=== PATIENT | male | born 1935 | race Caucasian/White ===

== ENCOUNTER 2017-01-04 09:02 | Emergency (ER) | payer MEDICARE, BC ==
[2017-01-04] MEDS ORDERED: IPRATROPIUM/ALBUTEROL 0.5/3 MG 3 ML AMPUL.NEB INHALATION ONE (09:28)
[2017-01-04 10:06] LABS: ALBUMIN 3.2 g/dL (3.5-5.0); ALKALINE PHOSPHATASE 210 U/L (38-126); ALT 36 U/L (21-72); AST 35 U/L (17-59); BILIRUBIN, DIRECT 0.2 mg/dL (0.0-0.4); BILIRUBIN, TOTAL 0.7 mg/dL (0.2-1.3); BLOOD UREA NITROGEN 22 mg/dL (9-20); CALCIUM 8.6 mg/dL (8.4-10.2); CHLORIDE 107 mmol/L (98-107); GLUCOSE 117 mg/dL (70-100); POTASSIUM 4.5 mmol/L (3.5-5.1); SODIUM 140 mmol/L (137-145); TOTAL PROTEIN 7.4 g/dL (6.3-8.2)
[2017-01-04 10:24] LABS: TROPONIN I 0.121 ng/mL (0.00-0.034)
[2017-01-04 10:43] LABS: HEMATOCRIT 28.4 % (42.0-54.0); HEMOGLOBIN 9.2 g/dL (14.0-18.0); MEAN CELL VOLUME 73.8 fL (80.0-100.0); MEAN CORPUS. HGB CONCENTRATION 32.4 g/dL (32.0-36.0); MEAN CORPUSCULAR HEMOGLOBIN 23.9 pg (29.0-35.0); MEAN PLATELET VOLUME 8.8 fL (7.4-10.4); PLATELET COUNT 154 X 10^3uL (130-440); RED BLOOD COUNT 3.84 X 10^6uL (4.20-6.10); RED CELL DISTRIBUTION WIDTH 18.9 % (11.5-14.5); WHITE BLOOD COUNT 3.4 X 10^3uL (3.9-10.7)
[2017-01-04 10:44] LABS: BAND% (Manual) 4 % (0.0-1.0); BASOPHIL % (Manual) 0 % (0.0-2.0); EOSINOPHIL % (Manual) 0 % (0.0-6.0); LYMPHOCYTE % (Manual) 28 % (20.0-40.0); MONOCYTE % (Manual) 2 % (2.0-10.0); NEUTROPHIL % (Manual) 66 % (54.0-75.0); NUCLEATED RED BLOOD CELL 1 #/100WBC (0-0)
[2017-01-04 10:45] LABS: OVALOCYTES PRESENT; PLATELET ESTIMATE ADEQUATE; SPHEROCYTE PRESENT; TEAR DROP CELLS PRESENT
--- NOTE | 2017-01-04 11:45 | RADIOLOGY REPORT ---
Two views of the chest, without prior films for comparison, demonstrates evidence of prior sternal splitting thoracotomy. The cardiac silhouette is enlarged. The pulmonary vasculature is unremarkable. Blunting of the left costophrenic angle is noted. Scarring versus fluid. There are findings consistent with a 15 cm hiatal hernia. The lung tilley are otherwise clear. No infiltrate or pneumothorax is seen. IMPRESSION: 1. Postoperative changes. 2. Enlargement of the cardiac silhouette. 3. Blunting of the left costophrenic angle. 4. Findings consistent with hiatal hernia. MTDD
--- NOTE | 2017-01-04 12:13 | CT REPORT ---
HISTORY: Chest pain, shortness of breath COMPARISON: None. TECHNIQUE: This examination was performed using automated exposure control, adjustment of mA or kV according to patient size, and/or use of iterative reconstruction technique. Axial CT imaging from the thoracic i nlet through the upper abdomen following administration of IV contrast during peak opacification of t he pulmonary arteries, multiplanar reformatted and 3-D images are evaluated. FINDINGS: The pulmonary arteries are clear with no evidence for pulmonary embolism. The proximal aorta is lyle l in caliber with no evidence for dissection or aneurysm. However, there is marked aneurysmal enlargement of the distal thoracic aorta near the diaphragmatic h iatus. The aorta measures 8.4 cm in AP dimension and 8.5 cm in transverse dimension. The aneurysm ext ends into the abdominal aorta. There is diffuse atherosclerotic disease. There is also cardiomegaly and coronary artery disease. 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 No pericardial effusion. There are small bilateral pleural ef fusions and nonspecific lower lobe predominant groundglass opacities. Mild emphysematous changes are also noted. Basilar compressive atelectasis. Upper abdominal organs are grossly unremarkable where vi sualized. IMPRESSION: 1. Negative for pulmonary embolism. 2. Cardiomegaly with small bilateral effusions and basilar predominant groundglass opacities suggesti ve of CHF. 3. 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 This ca n be further evaluated with CT angiogram of the abdomen and pelvis. Results were communicated to Musa Sheehan at 01/04/2017 12:07 PM. Final Electronic Signature: This report was electronically signed by Saran Soliz MD on 01/04/2017 12 :10 PM. erick /
--- NOTE | 2017-01-04 13:25 | ER NURSING DOCUMENTATION ---
Nurse's Notes [facility] Name:Earnest Velázquez Age:81 yrs Sex:Male :1935 Arrival Date:01/04/2017 Time:09:02 BedTrauma-C Private MD:Mark Joe Diagnosis:CHF (Congestive Heart Failure);Thoracic Aortic Aneurysm Presentation: 01/04 09:02 Presenting complaint: Patient states: pt has had significant troubles breath since st arriving in [place] from [place]. pt is a parts specialist resident here. pt has a lung nodule that they are watching. pt denies any cough or pain with this. Transition of care: Home. 09:02 Method Of Arrival: Private Vehicle st 09:09 Acuity: NIKOLAI 2 st Triage Assessment: 09:02 General: Appears uncomfortable, Behavior is cooperative. Pain: Denies pain. st Cardiovascular: Capillary refill < 3 seconds Pulses are all present. Rhythm is sinus rhythm. Respiratory: Airway is patent Respiratory effort is even, labored, Respiratory pattern is regular, symmetrical, hyperventilation Breath sounds are diminished bilaterally. Reports shortness of breath Onset: The symptoms/episode began/occurred last night while trying to sleep his first night at altitude this time around., the patient has moderate shortness of breath. GI: No deficits noted. Historical: - Allergies: Tetanus Vaccines & Toxoid; - Home Meds: 1. losartan oral 2. Lipitor Oral 3. Amiodarone Oral 4. Prilosec Oral 5. Synthroid Oral 6. doxazosin oral 7. fluticasone inhl 8. Celexa Oral 9. Lopressor Oral 10. Aspirin Oral 11. Spironolactone Oral 12. Norvasc Oral - PMHx: fever of UNK origens; CHF; Hypertension; DEPRESSION; HYPOTHYROIDISM; - Tetanus: > 10 years Other pt is alergic. - Ebola Screening: : Patient denies exposure to infectious person. Patient denies travel to an Ebola-affected area in the 21 days before illness onset. . - Immunization history: Pneumococcal vaccine status is unknown. - Social history: Smoking status: Patient states former smoker of tobacco. Patient uses alcohol but reports only rare drinking. Patient/guardian denies using marijuana. Screenin:03 Infectious Disease Risk None. Abuse screen: Denies threats or abuse. Denies injuries st from another. pt feels safe at home. Nutritional screening: No deficits noted. Assessment: 11:09 General: pt continues to rest quietly. pt only complaint continues to be SOB.. st Vital Signs: 09:02 BP 155 / 91; Pulse 101; Resp 29; Temp 101.5; Pulse Ox 77% on R/A; Pain 0/10; st 09:33 Pulse Ox 90% on 4 lpm NC; st 09:38 BP 124 / 72 (auto/); st 09:41 Pulse 82 MON; Resp 16; Pulse Ox 90% ; st 10:00 BP 121 / 72 (auto/); st 10:01 Pulse 79 MON; Resp 17; Pulse Ox 91% ; st 10:30 BP 111 / 71 (auto/); st 10:31 Pulse 77 MON; Resp 22; Pulse Ox 93% ; st 10:52 Temp 99.3; st 11:00 BP 119 / 68 (auto/); st 11:01 Pulse 77 MON; Resp 25; Pulse Ox 93% ; st 12:03 BP 124 / 74 (auto/); st 12:21 Pulse 74 MON; Resp 17; Pulse Ox 93% ; st 12:30 BP 130 / 73 (auto/); st 12:31 Pulse 74 MON; Resp 26; Pulse Ox 90% ; st 13:00 BP 125 / 73 (auto/); st 13:01 Pulse 76 MON; Resp 13; Pulse Ox 91% ; st 09:02 pt has a hx of fevers that come and go pt has been worked up exstencivly for this with st out an answer. pt states this fever is not unusual for him. ED Course: 09:02 Patient arrived in ED. ama 09:02 Mark Joe MD is Private Physician. ama 09:02 Valuables Remains with patient Patient has correct armband on for positive st identification. Bed in low position. Call light in reach. Side rails up X 1. legal instructor on. Pulse ox on. NIBP on. 09:08 Pablito Sheehan MD is Attending Physician. tl1 09:09 Beata Brantley, RN is Primary Nurse. st 09:[address] 09:42 EKG done per protocol. Performed by ED Staff. Shown to ED physician. st 10:00 Patient moved to radiology. dnn 10:09 Patient moved back from radiology. dnn 11:[address] dnn 11:42 Patient moved back from CT. dnn 13:10 EKG attached sj Administered Medications: 09:21 Drug: DuoNeb (Albuterol 2.5 mg, Atrovent 0.5 mg); 3 ml; Route: Nebulizer; st 09:52 Follow up: Response: No change in condition st Outcome: 12:39 ER care complete, transfer ordered by . tl1 12:39 [facility] Time: January 04, 2017 at 12:39 Patient's face sheet was faxed to accepting facility. Face Sheet included patient's name, address, age, gender, contact information and insurance information. Patient will be transported by: [facility] ground. 12:58 Report given to attempted to call report. No room number yet. st 13:24 Condition: stable st 13:24 Report given to Ismael RN at [facility] 13:24 Instructed on need for transfer 13:24 Transferred: Nurse and Physician Charting and Notes were sent to Accepting Facility. st All tests and/or procedures with results, if applicable, were sent to accepting facility. 13:24 Patient [address] the ED. st Signatures: Beata Brantley, RN RN Alex Mckeon Andrew, Pablito Rush MD MD tl1 Matilda Green
--- NOTE | 2017-01-04 13:25 | ER PHYSICIAN DOCUMENTATION ---
Physician Documentation [facility] Name:Earnest Velázquez Age:81 yrs Sex:Male :1935 Arrival Date:01/04/2017 Time:09:02 BedTrauma-C Private MD:Mark Joe ED, Tom Disposition: 01/04 12:54 Critical Care: not applicable. Chart complete. tl1 Disposition: 01/04/17 12:39 Transfer ordered to [facility]. Diagnosis are CHF (Congestive Heart Failure), Thoracic Aortic Aneurysm. - Reason for transfer: Higher level of care. - Accepting physician is Oneil Pike. - Condition is Fair. - Problem is new. - Symptoms have improved. COBRA Form completed? Yes Transfer - Mode of Transportation Ambulance HPI: 09:05 This 81 yrs old Male presents to ER via Private Vehicle with complaints of tl1 Breathing Difficulty. 09:05 The patient has shortness of breath at rest. Onset: The symptom(s)/episode tl1 began/occurred last night, at 22:00. The patient's shortness of breath is aggravated by exertion, is alleviated by rest. Associated signs and symptoms: Pertinent positives: fever, Pertinent negatives: chest pain, non-productive cough, diaphoresis, dizziness, hemoptysis, nausea, numbness in extremities, vomiting. Risk Factors The risk factors for pulmonary embolism include: This patient does not have any risk factors for a pulmonary embolism. Historical: - Allergies: Tetanus Vaccines & Toxoid; - Home Meds: 1. losartan oral 2. Lipitor Oral 3. Amiodarone Oral 4. Prilosec Oral 5. Synthroid Oral 6. doxazosin oral 7. fluticasone inhl 8. Celexa Oral 9. Lopressor Oral 10. Aspirin Oral 11. Spironolactone Oral 12. Norvasc Oral - PMHx: fever of UNK origens; CHF; Hypertension; DEPRESSION; HYPOTHYROIDISM; - Tetanus: > 10 years Other pt is alergic. - Ebola Screening: : Patient denies exposure to infectious person. Patient denies travel to an Ebola-affected area in the 21 days before illness onset. . - Immunization history: Pneumococcal vaccine status is unknown. - Social history: Smoking status: Patient states former smoker of tobacco. Patient uses alcohol but reports only rare drinking. Patient/guardian denies using marijuana. ROS: 12:44 Respiratory: Positive for shortness of breath, Negative for cough, hemoptysis, tl1 orthopnea, pleurisy, sputum production, wheezing. 12:44 All other systems are negative. Exam: 12:45 Constitutional: This is a well developed, well nourished patient who is awake, alert, tl1 and in no acute distress. Head/Face: Normocephalic, atraumatic. ENT: Nares patent. No nasal discharge, no septal abnormalities noted. Tympanic membranes are normal and external auditory canals are clear. Oropharynx with no redness, swelling, or masses, exudates, or evidence of obstruction, uvula midline. Mucous membranes moist. Neck: Trachea midline, no thyromegaly or masses palpated, and no cervical lymphadenopathy. Supple, full range of motion without nuchal rigidity, or vertebral point tenderness. No Meningismus. 12:45 Chest/axilla: Normal chest wall appearance and motion. Nontender with no deformity. tl1 No lesions are appreciated. 12:45 Cardiovascular: Rate: normal, Rhythm: regular, Heart sounds: normal, Edema: 1+ edema to level of left midcalf, left ankle and left foot. 12:45 Respiratory: Respirations: normal, Breath sounds: are normal. 12:45 Abdomen/GI: Inspection: abdomen appears normal, Palpation: abdomen is soft and non-tender. 12:45 Musculoskeletal/extremity: Exam is negative for acute changes. 12:45 Skin: Exam negative for acute changes. 12:45 Neuro: Exam negative for acute changes. Vital Signs: 09:02 BP 155 / 91; Pulse 101; Resp 29; Temp 101.5; Pulse Ox 77% on R/A; Pain 0/10; st 09:33 Pulse Ox 90% on 4 lpm NC; st 09:38 BP 124 / 72 (auto/); st 09:41 Pulse 82 MON; Resp 16; Pulse Ox 90% ; st 10:00 BP 121 / 72 (auto/); st 10:01 Pulse 79 MON; Resp 17; Pulse Ox 91% ; st 10:30 BP 111 / 71 (auto/); st 10:31 Pulse 77 MON; Resp 22; Pulse Ox 93% ; st 10:52 Temp 99.3; st 11:00 BP 119 / 68 (auto/); st 11:01 Pulse 77 MON; Resp 25; Pulse Ox 93% ; st 12:03 BP 124 / 74 (auto/); st 12:21 Pulse 74 MON; Resp 17; Pulse Ox 93% ; st 12:30 BP 130 / 73 (auto/); st 12:31 Pulse 74 MON; Resp 26; Pulse Ox 90% ; st 13:00 BP 125 / 73 (auto/); st 13:01 Pulse 76 MON; Resp 13; Pulse Ox 91% ; st 09:02 pt has a hx of fevers that come and go pt has been worked up exstencivly for this with st out an answer. pt states this fever is not unusual for him. MDM: 09:08 Patient medically screened. tl1 09:42 Response to treatment: the patient's symptoms have mildly improved after treatment, and tl1 as a result, I will admit patient. Physician consultation: Oneil Pike was called at 12:30, was contacted at 12:35, regarding admission, patient's condition, after a discussion of the case, a recommendation for transfer for higher level of care is made. Admission orders: after a detailed discussion of the patient's condition and case, the admit orders are written by me. Admission orders: after a detailed discussion of the patient's condition and case, the admit orders are written by me. Admission orders: after a detailed discussion of the patient's condition and case, the admit orders are written by me. 12:39 Patient medically screened. tl1 12:47 Antibiotic administration: Not indicated. The patient's pulmonary embolism risk score tl1 was calculated as follows: No Risks (0 Pts). Data reviewed: vital signs, nurses notes, lab test result(s), EKG, radiologic studies, CT scan, plain films, and as a result, I will *Transfer Patient. Data interpreted: room service attendant: Pulse oximetry:. Test interpretation: by ED physician or midlevel provider: plain radiologic studies, ECG. Counseling: I had a detailed discussion with the patient and/or guardian regarding: the historical points, exam findings, and any diagnostic results supporting the discharge/admit diagnosis, lab results, radiology results, the need to transfer to another facility. ECG:. 12:50 Special discussion: He has congestive heart failure and the altitude is contributing tl1 significantly. he could have some element of HAPE. He may be having silent ischemia with the mild elevation of his troponin and he needs to be transferred for cardiology evaluation and possible cardiac catheterization. It has been over 20 years since his bypass. In addition his very large TAA needs attention soon. I doubt that is contributing to his current symptoms, but it could rupture soon. His reported that it was found for the first time about a year ago and that it was "small", with a plan to watch it for the time being.. 12:54 ED course: Dyspnea resolved with oxygen. tl1 13:10 EKG attached 01/04 10:12 Order name: LACTATE; Complete Time: 10:31 EDMN 01/04 10:30 Interpretation: Normal: LACTATE 1.2. [facility] 01/04 10:25 Order name: BASIC METABOLIC PANEL; Complete Time: 07:19 EDMN 01/04 10:30 Interpretation: Normal: SODIUM 140; POTASSIUM 4.5; CHLORIDE 107; CARBON DIOXIDE 23; tl1 GLUCOSE 117; BLOOD UREA NITROGEN 22; CREATININE 1.2; CALCIUM 8.6. 01/04 10:25 Order name: HEPATIC PANEL; Complete Time: 07:19 EDMN 01/04 10:30 Interpretation: ALT 36; ALBUMIN 3.2; ALKALINE PHOSPHATASE 210; AST 35; BILIRUBIN, TOTAL tl1 0.7; BILIRUBIN, DIRECT 0.2; TOTAL PROTEIN 7.4. 01/04 10:25 Order name: BNP,NT-PRO; Complete Time: 07:19 EDMN 01/04 10:31 Interpretation: Abnormal: BNP,NT-PRO 2760. [facility] 01/04 10:25 Order name: TROPONIN I; Complete Time: 07:19 [facility] 01/04 10:31 Interpretation: Abnormal: TROPONIN I 0.121. 01/04 10:44 Order name: CBC WITHOUT A DIFFERENTIAL; Complete Time: 07: EDMN 01/05 07:18 Interpretation: WHITE BLOOD COUNT 3.4; HEMOGLOBIN 9.2; HEMATOCRIT 28.4; PLATELET COUNT tl1 154. 01/04 10:46 Order name: MANUAL DIFFERENTIAL; Complete Time: 07: EDMN 01/05 07:18 Interpretation: NEUTROPHIL % (Manual) 66; BAND% (Manual) 4; LYMPHOCYTE % (Manual) 28; tl1 NUCLEATED RED BLOOD CELL 1. 01/04 12:20 Order name: DDIMER; Complete Time: 07: EDMN 01/05 07:19 Interpretation: DDIMER 1187. tl1 01/04 12:14 Order name: CXR 2V [id number]; Complete Time: 07:19 EDMS 01/04 12:15 Order name: CAT SCAN; CHEST ANGIO [id number]; Complete Time: 07:19 EDMS 01/04 09:11 Order name: 12-lead EKG; Complete Time: 09:52 tl1 01/04 09:11 Order name: Continuous Cardiac Monitoring; Complete Time: :23 tl1 01/04 09:11 Order name: I & O; Complete Time: :23 tl1 01/04 09:11 Order name: Iv Saline Lock; Complete Time: 09:33 tl1 01/04 09:11 Order name: Oxygen; Complete Time: :23 tl1 01/04 09:11 Order name: Pulse Ox Continuous; Complete Time: : tl EC:42 Rate is 81 beats/min. Rhythm is regular. QRS Rewey is Normal. QRS is negative in leads tl1 III, aVF, aVR, V1, V2, V3, V4, V5. QRS interval is prolonged at 111 msec. QT interval is normal at 407 msec. No Q waves. T waves are Normal. Clinical impression: NSR with incomplete RBBB and LVH with secondary repolarization disorder. Interpreted by me. Reviewed by me. Dispensed Medications: 09:21 Drug: DuoNeb (Albuterol 2.5 mg, Atrovent 0.5 mg); 3 ml; Route: Nebulizer; st 09:52 Follow up: Response: No change in condition st Signatures: Beata Brantley RN RN st Leigh, Tom, MD MD tl1 Matilda Green
== END 2017-01-04 13:25 | disposition short-term general hospital (02) ==
LOC: ER 09:02
DX: I50.20 Unspecified systolic (congestive) heart failure (principal); I71.2 Thoracic aortic aneurysm, without rupture; R06.02 Shortness of breath; R60.0 Localized edema; R06.00 Dyspnea, unspecified; I45.10 Unspecified right bundle-branch block; R74.8 Abnormal levels of other serum enzymes; R79.1 Abnormal coagulation profile; R50.9 Fever, unspecified; Z95.1 Presence of aortocoronary bypass graft; I10 Essential (primary) hypertension; Z79.82 Long term (current) use of aspirin; Z79.899 Other long term (current) drug therapy; Z74.3 Need for continuous supervision; Z99.81 Dependence on supplemental oxygen
CPT/HCPCS: 71020; 71275; 80048; 80076; 83605; 83880; 84484; 85007; 85027; 85379; 93005; 94640; 99285; A0425; A0429; J7620

== ENCOUNTER 2017-01-30 10:55 | Inpatient (IN) | payer MEDICARE, BC ==
[2017-01-30] MEDS ORDERED: HOME MEDICATION LIST NEEDED 1 EA EACH MC ONE (19:10)
[2017-01-30] MEDS ORDERED: MAG-AL PLUS XS SUSP 30 ML UDC PO PRN (19:10)
[2017-01-30] MEDS ORDERED: MAGNESIUM HYDROXIDE 30 ML UDC PO PRN (19:10)
[2017-01-30] MEDS ORDERED: ACETAMINOPHEN 500 MG TABLET PO PRN (19:17)
[2017-01-30] MEDS ORDERED: SODIUM CHLORIDE NASAL SPRAY 44 SPRAY/44 ML BTL NASAL PRN (19:17)
[2017-01-30] MEDS ORDERED: FLUTICASONE NASAL 120 SPRAY BTL NASAL PRN (19:17)
[2017-01-30] MEDS ORDERED: ALBUTEROL HFA 1 INH INHALER INHALATION PRN (19:17)
[2017-01-30] MEDS ORDERED: [UNRECOGNIZED DRUG - OTHER] IV SCH (19:30)
[2017-01-30] MEDS ORDERED: VANCOMYCIN HCL IN DEXTROSE 5% IV SCH (19:30)
[2017-01-30] MEDS: ATORVASTATIN CALCIUIM 40 MG TABLET PO SCH (20:38)
[2017-01-30] MEDS: TERAZOSIN HCL 5 MG CAPSULE PO SCH (20:38)
[2017-01-30] MEDS: MELATONIN 3 MG TABLET PO SCH (20:39)
[2017-01-30] MEDS: LEVOFLOXACIN 250 MG TABLET PO SCH (20:39)
[2017-01-30] MEDS: traMADol HCL 50 MG TABLET PO PRN (20:40)
[2017-01-30] MEDS: DOCUSATE SODIUM 100 MG/10 ML UDC PO SCH (20:40)
[2017-01-30] MEDS ORDERED: HOME MEDICATION LIST NEEDED 1 EA EACH MISC ONE (21:00)
[2017-01-30] MEDS ORDERED: NORMAL SALINE 250 ML IV ONE (21:10)
[2017-01-30] MEDS: VANCOMYCIN HCL 1,000 MG in NORMAL SALINE ADDVANTAGE 250 ML IV SCH (21:15)
[2017-01-30 22:03] LABS: URINE APPEARANCE CLEAR; URINE BACTERIA NONE SEEN (<10/hpf); URINE BILIRUBIN NEGATIVE (NEGATIVE); URINE BLOOD 250 Ery/uL (3+) (NEGATIVE); URINE COLOR YELLOW; URINE GLUCOSE NORMAL (NEGATIVE); URINE KETONE NEGATIVE (NEGATIVE); URINE LEUKOCYTE ESTERASE NEGATIVE (NEGATIVE); URINE MUCUS NONE SEEN (Up to 25%); URINE NITRITE NEGATIVE (NEGATIVE); URINE PROTEIN 100mg/dL (2+) (NEG - TRACE); URINE RBC 0-5/hpf (0-5/hpf); URINE SQUAMOUS EPITHELIAL CELL NONE SEEN (<= 15/hpf); URINE UROBILINOGEN 0.2mg/dL (Normal) (NEG-1mg/dL); URINE WBC NONE SEEN (0-4/hpf)
[2017-01-30] MEDS: HYDROCORTISONE 1% CREAM 28 APP/28 GM TUBE TOPICAL PRN (22:08)
[2017-01-31] MEDS: HYDRALAZINE HCL 10 MG PO SCH ×2 (00:05→11:22)
[2017-01-31] MEDS: NEOMYCIN TOPICAL SCH (00:07)
[2017-01-31] MEDS: POLYMYXIN B TOPICAL SCH (00:07)
[2017-01-31] MEDS: BACITRACIN TOPICAL SCH (00:07)
[2017-01-31] MEDS: ISOSORBIDE DINITRATE 10 MG PO SCH ×2 (00:08→11:23)
[2017-01-31] MEDS: TERAZOSIN HCL 5 MG CAPSULE PO SCH ×2 (00:14→22:43)
[2017-01-31 05:28] LABS: A/G RATIO 0.8; ALBUMIN 3.1 g/dL (3.5-5.0); ALKALINE PHOSPHATASE 148 U/L (38-126); ALT 36 U/L (21-72); AST 30 U/L (17-59); BILIRUBIN, TOTAL 0.6 mg/dL (0.2-1.3); BLOOD UREA NITROGEN 45 mg/dL (9-20); CHLORIDE 100 mmol/L (98-107); GLUCOSE 99 mg/dL (70-100); POTASSIUM 4.1 mmol/L (3.5-5.1); SODIUM 134 mmol/L (137-145)
[2017-01-31 05:40] LABS: BASOPHILS 0.2 % (0.0-2.0); EOSINOPHILS 2.9 % (0.0-6.0); EOSINOPHILS# 0.1 X 10^3uL (0.0-0.4); HEMATOCRIT 31.4 % (42.0-54.0); HEMOGLOBIN 10.2 g/dL (14.0-18.0); LYMPHOCYTES 24.1 % (20.0-40.0); LYMPHOCYTES# 0.8 X 10^3uL (0.8-3.8); MEAN CELL VOLUME 82.8 fL (80.0-100.0); MEAN CORPUS. HGB CONCENTRATION 32.6 g/dL (32.0-36.0); MEAN PLATELET VOLUME 9.6 fL (7.4-10.4); MONOCYTES 10.5 % (2.0-10.0); MONOCYTES# 0.4 X 10^3uL (0.2-1.0); NEUTROPHILS 62.3 % (54.0-75.0); NEUTROPHILS# 2.2 X 10^3uL (2.6-6.7); PLATELET COUNT 149 X 10^3uL (130-440); RED BLOOD COUNT 3.79 X 10^6uL (4.20-6.10); WHITE BLOOD COUNT 3.5 X 10^3uL (3.9-10.7)
[2017-01-31 05:45] LABS: INR 1.1
[2017-01-31 06:03] LABS: RED CELL DISTRIBUTION WIDTH 23.1 % (11.5-14.5)
[2017-01-31] MEDS: traMADol HCL 50 MG TABLET PO PRN ×4 (06:17→18:31)
[2017-01-31] MEDS: LEVOTHYROXINE 75 MCG TABLET PO SCH (06:18)
[2017-01-31] MEDS: PANTOPRAZOLE 40 MG TABLET PO SCH (06:18)
[2017-01-31] MEDS: LEVOTHYROXINE 100 MCG TABLET PO SCH (06:18)
[2017-01-31 08:13] LABS: CALCIUM 8.7 mg/dL (8.4-10.2)
[2017-01-31] MEDS: MULTIVITAMINS THERAPEUTIC 1 TABLET PO SCH (08:24)
[2017-01-31] MEDS: CLOPIDOGREL BISULFATE 75 MG TABLET PO SCH (08:25)
[2017-01-31] MEDS: RIVAROXABAN 10 MG TABLET PO SCH (08:25)
[2017-01-31] MEDS: MAGNESIUM HYDROXIDE 30 ML UDC PO SCH (08:26)
[2017-01-31] MEDS: AMIODARONE HCL 200 MG TABLET PO SCH (08:26)
[2017-01-31] MEDS: LIDOCAINE 5% 1 PATCH PATCH TOPICAL SCH (08:27)
[2017-01-31] MEDS ORDERED: Umeclidinium Brm/Vilanterol Tr [Anoro Ellipta 62.5-25 Mcg Inh] INHALATION SCH (09:00)
[2017-01-31] MEDS: BACITRACIN 1 APP/PKT PKT TOPICAL SCH ×2 (11:22→22:43)
--- NOTE | 2017-01-31 11:33 | RADIOLOGY REPORT ---
Two views of the chest are compared with 01/04/2017. Again noted are post surgical changes. Heart and vessels are stable. Right PICC line appears unremarkable. There has been interval increase in the left pleural fluid. No other change is identified. IMPRESSION: 1. Interval right PICC line. 2. Increasing left pleural fluid. MTDD
[2017-01-31] MEDS: VILANTEROL TR INHALATION SCH (11:34)
[2017-01-31] MEDS: UMECLIDINIUM BRM INHALATION SCH (11:34)
[2017-01-31] MEDS: hydrALAZINE HCL 10 MG TABLET PO SCH ×3 (12:13→22:47)
--- NOTE | 2017-01-31 14:17 | PROGRESS NOTE: IM SOAP ---
IM: PN Subjective Interval history: Started PT Cardiovascular: no chest pain Respiratory: no SOB Gastrointestinal: no abdominal pain Musculoskeletal: no other (back pain) IM: PN Objective Exam - I&O/Vital Signs I&O: Intake & Output 01/31/17 01/31/17 01/31/17 05:59 13:59 21:59 Intake Total 400 Output Total 900 Balance -500 Intake: IV 300 Right Upper arm 300 Oral 100 Output: Urine 900 Other: Urine Appearance Clear Urine Color Yellow Uretheral (Paredes) Yellow Voiding Method Indwelling Catheter Vital Signs: Last Vital Signs Temp 36.6 C 01/31/17 11:49 Pulse 68 01/31/17 11:49 Resp 18 01/31/17 11:49 BP 126/92 01/31/17 11:49 Pulse Ox 92 01/31/17 11:49 Oxygen Flow Rate 2 Oxygen Delivery Method Nasal Cannula - Respiratory Respiratory exam: Present: clear. Absent: rales - Cardiovascular Cardiovascular exam: Present: irregular rhythm (irreg irreg), systolic murmur ( LUSB) - GI/Abdominal GI/Abdominal exam: Present: normal bowel sounds, soft, tenderness (LUQ secondary to splenic infarcts). Absent: organomegaly - exam: Present: circumcision, scrotal swelling, other (paredes with bld staining on dressing) - Extremities Exam Extremities exam: Absent: calf tenderness, edema - Lab Labs: Laboratory Last Values WBC 3.5 X 10^3uL (3.9-10.7) L 01/31/17 05:00 RBC 3.79 X 10^6uL (4.20-6.10) L 01/31/17 05:00 Hgb 10.2 g/dL (14.0-18.0) L 01/31/17 05:00 Hct 31.4 % (42.0-54.0) L 01/31/17 05:00 MCV 82.8 fL (80.0-100.0) D 01/31/17 05:00 MCH 27.0 pg (29.0-35.0) L 01/31/17 05:00 MCHC 32.6 g/dL (32.0-36.0) 01/31/17 05:00 RDW 23.1 % (11.5-14.5) H D 01/31/17 05:00 Plt Count 149 X 10^3uL (130-440) 01/31/17 05:00 MPV 9.6 fL (7.4-10.4) 01/31/17 05:00 Neutrophils % 62.3 % (54.0-75.0) 01/31/17 05:00 Lymphocytes % 24.1 % (20.0-40.0) 01/31/17 05:00 Eosinophils % 2.9 % (0.0-6.0) 01/31/17 05:00 Basophils % 0.2 % (0.0-2.0) 01/31/17 05:00 Neutrophils # 2.2 X 10^3uL (2.6-6.7) L 01/31/17 05:00 Lymphocytes # 0.8 X 10^3uL (0.8-3.8) 01/31/17 05:00 Monocytes 10.5 % (2.0-10.0) H 01/31/17 05:00 Monocytes # 0.4 X 10^3uL (0.2-1.0) 01/31/17 05:00 Eosinophils # 0.1 X 10^3uL (0.0-0.4) 01/31/17 05:00 Basophils # 0.0 X 10^3uL (0.0-0.1) 01/31/17 05:00 PT 18.2 sec (13.0-16.6) H 01/31/17 05:00 INR 1.1 01/31/17 05:00 Sodium 134 mmol/L (137-145) L 01/31/17 05:00 Potassium 4.1 mmol/L (3.5-5.1) 01/31/17 05:00 Chloride 100 mmol/L (98-107) 01/31/17 05:00 Carbon Dioxide 25 mmol/L (22-30) 01/31/17 05:00 BUN 45 mg/dL (9-20) H D 01/31/17 05:00 Creatinine 1.3 mg/dL (0.7-1.3) 01/31/17 05:00 GFR Calculation Not Reportable 01/31/17 05:00 Glucose 99 mg/dL (70-100) 01/31/17 05:00 Calcium 8.7 mg/dL (8.4-10.2) 01/31/17 05:00 Total Bilirubin 0.6 mg/dL (0.2-1.3) 01/31/17 05:00 AST 30 U/L (17-59) 01/31/17 05:00 ALT 36 U/L (21-72) 01/31/17 05:00 Alkaline Phosphatase 148 U/L (38-126) H 01/31/17 05:00 Total Protein 7.0 g/dL (6.3-8.2) 01/31/17 05:00 Albumin 3.1 g/dL (3.5-5.0) L 01/31/17 05:00 Albumin/Globulin Ratio 0.8 01/31/17 05:00 Urine Color Yellow 01/30/17 20:45 Urine Appearance Clear 01/30/17 20:45 Urine pH 7.0 (5-7) 01/30/17 20:45 Ur Specific Benson 1.020 (0.001-1.035) 01/30/17 20:45 Urine Protein 100mg/dl (2+) (NEG - TRACE) A 01/30/17 20:45 Urine Ketones Negative (NEGATIVE) 01/30/17 20:45 Urine Blood 250 jen/ul (3+) (NEGATIVE) A 01/30/17 20:45 Urine Nitrate Negative (NEGATIVE) 01/30/17 20:45 Urine Bilirubin Negative (NEGATIVE) 01/30/17 20:45 Urine Urobilinogen 0.2mg/dl (normal) (NEG-1mg/dL) 01/30/17 20:45 Ur Leukocyte Esterase Negative (NEGATIVE) 01/30/17 20:45 Urine RBC 0-5/hpf (0-5/hpf) 01/30/17 20:45 Urine WBC None seen (0-4/hpf) 01/30/17 20:45 Ur Squamous Epith Cells None seen (<= 15/hpf) 01/30/17 20:45 Urine Bacteria None seen (<10/hpf) 01/30/17 20:45 Urine Mucus None seen (Up to 25%) 01/30/17 20:45 Urine Glucose Normal (NEGATIVE) 01/30/17 20:45 Assessment and Plan - Date of Encounter Date of Encounter: 01/31/17 (1) mycotic thoracoabdominial aneurysm Status: Acute Assessment and plan: S/P physician modified endograft, Dr Burdick Vancomycin and Levaquin until 02/26/17 Vanco trough, labs followed by [facility] Watch for back/abd pain which should prompt chest/abd/pelvic CT and possible abd ultrasound Reviewed with pt and family treatment plan Current Visit: Yes (2) Atrial fibrillation Status: Acute Assessment and plan: Amiodarone, Metoprolol Plavix, Xarelto Cardiology Current Visit: Yes (3) HTN (hypertension) Status: Acute Current Visit: Yes (4) Hyperlipidemia Status: Acute Current Visit: Yes (5) Acute on chronic heart failure Status: Acute Assessment and plan: Cardiology Current Visit: Yes (6) Acute kidney injury (nontraumatic) Status: Acute Assessment and plan: Improved Current Visit: Yes (7) Fever of unknown origin (FUO) Status: Acute Assessment and plan: Secondary to mycotic aneurysm. No fever since surgery and antibiotics. Current Visit: Yes (8) Thrombocytopenia Status: Acute Assessment and plan: Improved Secondary to Rocephin Current Visit: Yes (9) Hypoxia Status: Acute Current Visit: Yes (10) Urinary retention Status: Acute Current Visit: Yes (11) Paraphimosis Status: Acute Assessment and plan: Urgent circumcision, persistent bleeding secondary to bld thinners Urinary retention with PVR, Paredes Urology Current Visit: Yes (12) Splenic infarct Status: Acute Assessment and plan: LUQ abd pain Secondary to multi small infarcts due to emboli Slowly improving Current Visit: Yes - Time Spent With Patient Total time spent with greater than 50% in coordination of care (as documented) at patient's floor/unit and/or counseling patient: Quality Questions - VTE Prophylaxis Assessment VTE Present on Admission?: No Patient at risk for venous thromboembolism?: Yes VTE Risk Level: High Risk Pharmaceutical VTE prophylaxis contraindication reason: N/A- VTE prophylaxsis ordered Mechanical VTE prophylaxis contraindication reason: not indicated
[2017-01-31] MEDS: ISOSORBIDE DINITRATE 10 MG TABLET PO SCH ×2 (14:33→22:53)
[2017-01-31] MEDS ORDERED: ISOSORBIDE DINITRATE 10 MG TABLET PO SCH (15:00)
[2017-01-31] MEDS ORDERED: hydrALAZINE HCL 10 MG TABLET PO SCH (15:00)
--- NOTE | 2017-01-31 16:38 | HISTORY & PHYSICAL ---
DATE OF ADMISSION: 01/30/17 ATTENDING PHYSICIAN: Mark Joe MD CHIEF COMPLAINT: Weakness. HISTORY OF PRESENT ILLNESS: Patient was admitted to [facility] on 01/04/17 and transferred to [facility] on 01/06/17 for congestive heart failure, acute respiratory failure to hypoxia and an 8 cm descending thoracic aortic aneurysm. Patient was not a good surgical candidate. He had been having a fever of unknown origin for the last year, and had an extensive workup with Infectious Disease, Hematology and Rheumatology. At the time of transfer, there was concern for a mycotic thoraco abdominal aortic aneurysm. This aneurysm had rapidly dilated over the last year to 8 cm. Patient was under the care of vascular surgeon Dr. Alex Burdick, who performed placement of a physician-modified Endograft for repair of the patient's mycotic thoraco abdominal aortic aneurysm. Postoperatively, the patient did have issues with acute respiratory distress and flash pulmonary edema with a rise in his troponin. He was diuresed and followed by Cardiology, Pulmonology and Nephrology. He will remain on Plavix for a lifetime to ensure patency of the mesenteric and renal stents. He did demonstrate a splenic infarct felt to be due to multiple emboli, with associated left upper quadrant abdominal pain. The pain was controlled with Tylenol and Tramadol. He did develop an acute kidney injury, multifactorial, including IV contrast, vin inhibitors, hypotension and NSAID usage. Creatinine peaked at 2.2 from his baseline of 1.1, and it improved with time. At this time, hypertension is stable on a combination of Metoprolol, isosorbide, Hydralazine and Doxazosin; he is to avoid Vin inhibitors and ARB anti-hypertensives. Hyperlipidemia remains stable on statin. Atrial fibrillation is rate controlled with Amiodarone and Metoprolol; patient remains on Plavix and Xarelto. Fever of unknown origin was extensively evaluated by Infectious Disease and Rheumatology. At this time, the mycotic thoraco abdominal aortic aneurysm seems to be the most likely source, and he has had no further fever since his graft placement and treatment with antibiotics. He will need to remain on IV Vancomycin and Levaquin until 02/26/17, and will have weekly CBC with differential, CMP and Vancomycin trough while on antibiotics. The [facility] ([facility]) along with [facility] will be following these test results. He did develop acute thrombocytopenia, felt to be related to Rocephin, and this was added to his allergy list. He did require urgent circumcision for a paraphimosis with associated urinary retention. A trial of Eddy discontinuation failed due to a post void residual of 800 mL and the Eddy was reinserted on 01/29/17. He will need to be followed by Urology in this regard. He had underlying acute on chronic systolic heart failure, and Cardiology has been consulted to help manage. Patient did require diuresis during his hospital stay, and he has an ejection fraction of less than 40%. He is on multiple medications for congestive heart failure as noted above. He remains hypoxic and is requiring oxygen at 1 liter per minute in [place] and 2 liters per minute in [place] at 7500 foot elevation. He will have a follow up with Dr. Burdick in about 1 month. ALLERGIES: Rocephin, Lisinopril (cough, acute renal failure), tetanus toxoid ( rash and localized swelling). MEDICATIONS AT TIME OF DISCHARGE FROM [facility] Acetaminophen 650 mg 1 tab p.o. q.6 hours. Plavix 75 mg p.o. daily. Fluticasone nasal inhaler 2 sprays each nostril daily PRN. Hydralazine 10 mg p.o. t.i.d. Hydrocortisone 1% cream to be applied topically b.i.d. PRN pruritic rash. Isosorbide Dinitrate 10 mg p.o. t.i.d. Levaquin 500 mg p.o. q.o.d. Lidoderm 5% patch to be applied in the morning and to be removed 12 hours later. Milk of Magnesium 30 mL p.o. daily. Melatonin 3 mg p.o. q.h.s. Neosporin to be applied b.i.d. topically for 10 days PRN. Xarelto 15 mg p.o. daily. Saline nasal spray PRN. Tramadol 50 mg -1 tab p.o. q.4 hours PRN pain. Trazadone 50 mg p.o. q.h.s. PRN sleep. Vancomycin 1000 mg IV q.24 hours. Amiodarone 200 mg p.o. daily. Anoro ellipta 62.5/25 mcg 1 puff daily. Atorvastatin 40 mg p.o. daily. Docusate 50 mg p.o. q.h.s. Doxazosin 4 mg p.o. daily. Metoprolol tartrate 25 mg p.o. b.i.d. Multivitamin 1 tab p.o. daily. Omeprazole 40 mg p.o. daily. Levothyroxine 175 mcg p.o. daily. Ventolin HFA inhaler 1-2 puffs q.4 hours PRN. PAST MEDICAL HISTORY 1. Atrial fibrillation. 2. Basal cell carcinoma of the face. 3. Coronary artery disease, status post myocardial infarction with angioplasty 1988, coronary artery bypass graft surgery x4 vessels. 4. Congestive heart failure. 5. Depression. 6. Fever of unknown etiology with associated chronic fatigue for which he had an extensive workup in 2016 by Infectious Disease, Rheumatology and Hematology. 7. Hypertension. 8. Hyperlipidemia. 9. Hypothyroidism. 10. Leukopenia 2016 with negative workup. 11. Obstructive sleep apnea. 12. Positive SHAMEKA in 2016 for which no etiology was found. 13. Lumbar spinal stenosis. 14. Weight loss in 2016 for which no etiology was found. 15. Tonsillectomy. 16. Chronic obstructive pulmonary disease as noted on chest CT scan at [facility]. 17. Gastroesophageal reflux disease as noted at [facility]. 18. 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 Burdick 12/2016. 19. Paraphimosis with urinary retention, status post circumcision 12/2016. SOCIAL HISTORY: , 3 children. Retired from insurance industry. Summer resident in [place] and [place] in [place]. No alcohol. Quit smoking 1978, at which time he was still smoking 2-3 packs per day. FAMILY HISTORY: Father at 51 of coronary embolism and cerebrovascular accident. Mother at 92 of old age. REVIEW OF SYSTEMS: No liver, diabetes, seizures, peptic ulcer disease, new skin , allergy or bleeding disorders. IMMUNIZATIONS: Gets annual flu shot. Pneumovax 2014. Prevnar 2015. Zostavax 2014. Allergic to Tdap. PHYSICAL EXAMINATION VITAL SIGNS: Please see hospital records for admission vital signs. Patient is currently on oxygen at 2 liters per minute. GENERAL: Well-nourished, well-developed male, in no acute distress. No respiratory distress. Alert and oriented x3. Positive affect. HEENT: EOMI. PERRL. Fundi difficult to visualize. Normal conjunctivae. TMs normal. No coryza. Pharynx not injected. Midline structures. NECK: No lymphadenopathy. No thyromegaly. No carotid bruits. Neck supple. CHEST: Clear. No rales, rhonchi or wheezes. Good breath sounds and symmetry throughout. COR: Irregular irregular rhythm with a left upper sternal border murmur, 2/6 in intensity. No gallops, rubs or clicks. No jugular venous distention. ABDOMEN: Soft, nontender. Mild to moderate left upper quadrant abdominal tenderness on deep palpation. No obvious hepatosplenomegaly, although difficult to palpate left upper quadrant. No masses. No bruits. No inguinal nodes. Bowel sounds present. LOWER EXTREMITIES: No edema. Good peripheral pulses. Negative Homans sign. No calf tenderness. NEUROLOGIC: Cranial nerves 2-12 intact. Motor 5/5. Sensory intact. ASSESSMENT 1. 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 2. Acute kidney injury, improved. 3. Hypertension. 4. Hyperlipidemia. 5. Atrial fibrillation. 6. Fever of unknown origin, felt to be related to #1. 7. Acute thrombocytopenia, related to Rocephin. 8. Paraphimosis with urinary retention, status post urgent circumcision. 9. Acute on chronic systolic heart failure. 10. Hypoxia. 11. Splenic infarct felt to be due to multiple emboli. 12. Obstructive sleep apnea. 13. Retrospectively, symptoms of chronic fever, fatigue, weight loss, night sweats, elevated CRP, depression, etc., for the last year, are most likely related to #1, and all symptoms seem to be doing better at this time. 14. Generalized weakness secondary to prolonged hospitalization. PLAN 1. Vancomycin and Levaquin until 02/26/17 with Vancomycin troughs and labs by the [facility] ([facility]) and [facility]. Patient will need weekly CBC with differential, CMP and Vancomycin trough. 2. Cardiology consultation. 3. Pulmonary consultation. 4. Urology consultation. 5. Oxygen, which can hopefully be weaned as tolerated. 6. Patient will follow up with Dr. Burdick in 1 month with renal and mesenteric ultrasound and chest/abdominal/pelvic CTA to be arranged by [facility]. 7. Dietary consultation. 8. Physical therapy and occupational therapy and rehabilitation. 9. Full code status. Copies to: Dr. Alex Burdick, Dr. Ren, Dr. Magdaleno, Dr. Hernandes, Dr. Iyer, Dr. Benitez, Dr. Pfeiffer, Dr. Edward AVENDANO
[2017-01-31] MEDS ORDERED: O2 HUMIDIFIER 650 ML BOTTLE INHALATION ONE (18:57)
[2017-01-31] MEDS: MELATONIN 3 MG TABLET PO SCH (22:42)
[2017-01-31] MEDS: DOCUSATE SODIUM 100 MG/10 ML UDC PO SCH (22:44)
[2017-01-31] MEDS: ATORVASTATIN CALCIUIM 40 MG TABLET PO SCH (22:45)
[2017-01-31] MEDS: VANCOMYCIN HCL 1,000 MG in NORMAL SALINE ADDVANTAGE 250 ML IV SCH (22:53)
[2017-02-01] MEDS: LEVOTHYROXINE 100 MCG TABLET PO SCH (06:37)
[2017-02-01] MEDS: PANTOPRAZOLE 40 MG TABLET PO SCH (06:37)
[2017-02-01] MEDS: LEVOTHYROXINE 75 MCG TABLET PO SCH (06:37)
[2017-02-01] MEDS: traMADol HCL 50 MG TABLET PO PRN ×4 (07:56→22:58)
[2017-02-01] MEDS: MAGNESIUM HYDROXIDE 30 ML UDC PO SCH ×2 (09:41→10:04)
[2017-02-01] MEDS: LIDOCAINE 5% 1 PATCH PATCH TOPICAL SCH (09:41)
[2017-02-01] MEDS: RIVAROXABAN 10 MG TABLET PO SCH (09:41)
[2017-02-01] MEDS: UMECLIDINIUM BRM INHALATION SCH (09:41)
[2017-02-01] MEDS: VILANTEROL TR INHALATION SCH (09:41)
[2017-02-01] MEDS: MULTIVITAMINS THERAPEUTIC 1 TABLET PO SCH (09:41)
[2017-02-01] MEDS: BACITRACIN 1 APP/PKT PKT TOPICAL SCH ×2 (09:41→21:26)
[2017-02-01] MEDS: hydrALAZINE HCL 10 MG TABLET PO SCH ×3 (09:42→21:26)
[2017-02-01] MEDS: CLOPIDOGREL BISULFATE 75 MG TABLET PO SCH (09:42)
[2017-02-01] MEDS: AMIODARONE HCL 200 MG TABLET PO SCH (09:42)
[2017-02-01] MEDS: ISOSORBIDE DINITRATE 10 MG TABLET PO SCH ×3 (09:42→21:27)
--- NOTE | 2017-02-01 13:04 | PROGRESS NOTE: IM SOAP ---
IM: PN Subjective Interval history: Started PT Cardiovascular: no chest pain Respiratory: no SOB Gastrointestinal: no abdominal pain Musculoskeletal: no other (back pain) IM: PN Objective Exam - I&O/Vital Signs I&O: Intake & Output 01/31/17 02/01/17 02/01/17 21:59 05:59 13:59 Intake Total 2100 200 Output Total 1200 300 Balance 900 -100 Weight 84.822 kg Intake: IV 0 Right Upper arm 0 Oral 2100 200 Output: Urine 1200 300 Other: Urine Appearance Clear Clear Clear Urine Color Straw Yellow Yellow Stool Size Large Large Stool Characteristics Soft Voiding Method Indwelling Catheter Indwelling Catheter Indwelling Catheter # Bowel Movements 1 Vital Signs: Last Vital Signs Temp 36.4 C L 02/01/17 11:00 Pulse 83 02/01/17 11:00 Resp 28 H 02/01/17 11:00 BP 156/66 02/01/17 11:00 Pulse Ox 92 02/01/17 11:00 Oxygen Flow Rate 2 Oxygen Delivery Method Nasal Cannula - Respiratory Respiratory exam: Present: clear. Absent: rales - Cardiovascular Cardiovascular exam: Present: irregular rhythm (irreg irreg), systolic murmur ( LUSB) - GI/Abdominal GI/Abdominal exam: Present: normal bowel sounds, soft, tenderness (LUQ secondary to splenic infarcts). Absent: organomegaly - exam: Present: circumcision, scrotal swelling, other (paredes with bld staining on dressing) - Extremities Exam Extremities exam: Absent: calf tenderness, edema - Lab Labs: Laboratory Last Values WBC 3.5 X 10^3uL (3.9-10.7) L 01/31/17 05:00 RBC 3.79 X 10^6uL (4.20-6.10) L 01/31/17 05:00 Hgb 10.2 g/dL (14.0-18.0) L 01/31/17 05:00 Hct 31.4 % (42.0-54.0) L 01/31/17 05:00 MCV 82.8 fL (80.0-100.0) D 01/31/17 05:00 MCH 27.0 pg (29.0-35.0) L 01/31/17 05:00 MCHC 32.6 g/dL (32.0-36.0) 01/31/17 05:00 RDW 23.1 % (11.5-14.5) H D 01/31/17 05:00 Plt Count 149 X 10^3uL (130-440) 01/31/17 05:00 MPV 9.6 fL (7.4-10.4) 01/31/17 05:00 Neutrophils % 62.3 % (54.0-75.0) 01/31/17 05:00 Lymphocytes % 24.1 % (20.0-40.0) 01/31/17 05:00 Eosinophils % 2.9 % (0.0-6.0) 01/31/17 05:00 Basophils % 0.2 % (0.0-2.0) 01/31/17 05:00 Neutrophils # 2.2 X 10^3uL (2.6-6.7) L 01/31/17 05:00 Lymphocytes # 0.8 X 10^3uL (0.8-3.8) 01/31/17 05:00 Monocytes 10.5 % (2.0-10.0) H 01/31/17 05:00 Monocytes # 0.4 X 10^3uL (0.2-1.0) 01/31/17 05:00 Eosinophils # 0.1 X 10^3uL (0.0-0.4) 01/31/17 05:00 Basophils # 0.0 X 10^3uL (0.0-0.1) 01/31/17 05:00 PT 18.2 sec (13.0-16.6) H 01/31/17 05:00 INR 1.1 01/31/17 05:00 Sodium 134 mmol/L (137-145) L 01/31/17 05:00 Potassium 4.1 mmol/L (3.5-5.1) 01/31/17 05:00 Chloride 100 mmol/L (98-107) 01/31/17 05:00 Carbon Dioxide 25 mmol/L (22-30) 01/31/17 05:00 BUN 45 mg/dL (9-20) H D 01/31/17 05:00 Creatinine 1.3 mg/dL (0.7-1.3) 01/31/17 05:00 GFR Calculation Not Reportable 01/31/17 05:00 Glucose 99 mg/dL (70-100) 01/31/17 05:00 Calcium 8.7 mg/dL (8.4-10.2) 01/31/17 05:00 Total Bilirubin 0.6 mg/dL (0.2-1.3) 01/31/17 05:00 AST 30 U/L (17-59) 01/31/17 05:00 ALT 36 U/L (21-72) 01/31/17 05:00 Alkaline Phosphatase 148 U/L (38-126) H 01/31/17 05:00 Total Protein 7.0 g/dL (6.3-8.2) 01/31/17 05:00 Albumin 3.1 g/dL (3.5-5.0) L 01/31/17 05:00 Albumin/Globulin Ratio 0.8 01/31/17 05:00 Urine Color Yellow 01/30/17 20:45 Urine Appearance Clear 01/30/17 20:45 Urine pH 7.0 (5-7) 01/30/17 20:45 Ur Specific [place] 1.020 (0.001-1.035) 01/30/17 20:45 Urine Protein 100mg/dl (2+) (NEG - TRACE) A 01/30/17 20:45 Urine Ketones Negative (NEGATIVE) 01/30/17 20:45 Urine Blood 250 jen/ul (3+) (NEGATIVE) A 01/30/17 20:45 Urine Nitrate Negative (NEGATIVE) 01/30/17 20:45 Urine Bilirubin Negative (NEGATIVE) 01/30/17 20:45 Urine Urobilinogen 0.2mg/dl (normal) (NEG-1mg/dL) 01/30/17 20:45 Ur Leukocyte Esterase Negative (NEGATIVE) 01/30/17 20:45 Urine RBC 0-5/hpf (0-5/hpf) 01/30/17 20:45 Urine WBC None seen (0-4/hpf) 01/30/17 20:45 Ur Squamous Epith Cells None seen (<= 15/hpf) 01/30/17 20:45 Urine Bacteria None seen (<10/hpf) 01/30/17 20:45 Urine Mucus None seen (Up to 25%) 01/30/17 20:45 Urine Glucose Normal (NEGATIVE) 01/30/17 20:45 Vancomycin Trough 11.5 ug/mL (5.0-20.0) 01/31/17 20:30 Assessment and Plan - Date of Encounter Date of Encounter: 02/01/17 (1) mycotic thoracoabdominial aneurysm Status: Acute Assessment and plan: S/P physician modified endograft, Dr Budrick Vancomycin and Levaquin until 02/26/17 Vanco trough, labs followed by [facility] Watch for back/abd pain which should prompt chest/abd/pelvic CT and possible abd ultrasound Reviewed with pt and family treatment plan Current Visit: Yes (2) Atrial fibrillation Status: Acute Assessment and plan: Amiodarone, Metoprolol Plavix, Xarelto Cardiology Current Visit: Yes (3) HTN (hypertension) Status: Acute Current Visit: Yes (4) Hyperlipidemia Status: Acute Current Visit: Yes (5) Acute on chronic heart failure Status: Acute Assessment and plan: Cardiology Metoprolol Current Visit: Yes (6) Acute kidney injury (nontraumatic) Status: Acute Assessment and plan: Improved Cr 1.3 Current Visit: Yes (7) Fever of unknown origin (FUO) Status: Acute Assessment and plan: Secondary to mycotic aneurysm. No fever since surgery and antibiotics. Current Visit: Yes (8) Thrombocytopenia Status: Acute Assessment and plan: Improved Secondary to Rocephin Current Visit: Yes (9) Hypoxia Status: Acute Assessment and plan: O2 @ 2 l/min Current Visit: Yes (10) Urinary retention Status: Acute Current Visit: Yes (11) Paraphimosis Status: Acute Assessment and plan: Urgent circumcision, persistent bleeding secondary to bld thinners Urinary retention with PVR, [facility] Current Visit: Yes (12) Splenic infarct Status: Acute Assessment and plan: LUQ abd pain Secondary to multi small infarcts due to emboli Xarelto Slowly improving Current Visit: Yes - Time Spent With Patient Total time spent with greater than 50% in coordination of care (as documented) at patient's floor/unit and/or counseling patient:
[2017-02-01] MEDS: VANCOMYCIN HCL 1,250 MG in NORMAL SALINE 250 ML IV SCH (21:26)
[2017-02-01] MEDS: DOCUSATE SODIUM 100 MG/10 ML UDC PO SCH (21:26)
[2017-02-01] MEDS: LEVOFLOXACIN 250 MG TABLET PO SCH (21:27)
[2017-02-01] MEDS: TERAZOSIN HCL 5 MG CAPSULE PO SCH (21:27)
[2017-02-01] MEDS: MELATONIN 3 MG TABLET PO SCH (21:27)
[2017-02-01] MEDS: ATORVASTATIN CALCIUIM 40 MG TABLET PO SCH (21:27)
[2017-02-01] MEDS: traZODone HCL 50 MG TABLET PO PRN (21:27)
[2017-02-02] MEDS: traMADol HCL 50 MG TABLET PO PRN ×5 (03:29→22:32)
[2017-02-02] MEDS: LEVOTHYROXINE 75 MCG TABLET PO SCH (06:05)
[2017-02-02] MEDS: LEVOTHYROXINE 100 MCG TABLET PO SCH (06:05)
[2017-02-02] MEDS: PANTOPRAZOLE 40 MG TABLET PO SCH (06:05)
[2017-02-02] MEDS: MAGNESIUM HYDROXIDE 30 ML UDC PO SCH (09:15)
[2017-02-02] MEDS: hydrALAZINE HCL 10 MG TABLET PO SCH ×3 (09:18→20:45)
[2017-02-02] MEDS: ISOSORBIDE DINITRATE 10 MG TABLET PO SCH ×3 (09:19→20:45)
[2017-02-02] MEDS: BACITRACIN 1 APP/PKT PKT TOPICAL SCH ×2 (09:19→20:42)
[2017-02-02] MEDS: AMIODARONE HCL 200 MG TABLET PO SCH (09:19)
[2017-02-02] MEDS: MULTIVITAMINS THERAPEUTIC 1 TABLET PO SCH (09:19)
[2017-02-02] MEDS: LIDOCAINE 5% 1 PATCH PATCH TOPICAL SCH ×2 (09:20→20:42)
[2017-02-02] MEDS: RIVAROXABAN 10 MG TABLET PO SCH (09:29)
[2017-02-02] MEDS: CLOPIDOGREL BISULFATE 75 MG TABLET PO SCH (09:29)
[2017-02-02] MEDS: VILANTEROL TR INHALATION SCH (09:59)
[2017-02-02] MEDS: UMECLIDINIUM BRM INHALATION SCH (09:59)
[2017-02-02] MEDS: POLYMYXIN B TOPICAL SCH (11:14)
[2017-02-02] MEDS: BACITRACIN TOPICAL SCH (11:14)
[2017-02-02] MEDS: NEOMYCIN TOPICAL SCH (11:14)
--- NOTE | 2017-02-02 12:46 | PROGRESS NOTE: IM SOAP ---
IM: PN Subjective Interval history: Started PT Cardiovascular: no chest pain Respiratory: no SOB Gastrointestinal: no abdominal pain Musculoskeletal: no other (back pain) IM: PN Objective Exam - I&O/Vital Signs I&O: Intake & Output 02/01/17 02/02/17 02/02/17 21:59 05:59 13:59 Intake Total 1288 300 Output Total 625 750 Balance 663 -450 Weight 84.5 kg Intake: Oral 1288 300 Output: Urine 625 750 Other: Urine Appearance Clear Clear Urine Color Straw Light Jamila Stool Size Large Stool Characteristics Formed Voiding Method Toilet Indwelling Catheter # Bowel Movements 1 Vital Signs: Last Vital Signs Temp 36.9 C 02/02/17 06:01 Pulse 67 02/02/17 06:01 Resp 12 02/02/17 06:01 BP 173/79 02/02/17 06:01 Pulse Ox 89 L 02/02/17 08:38 Oxygen Flow Rate 3 Oxygen Delivery Method Nasal Cannula - Respiratory Respiratory exam: Present: clear. Absent: rales - Cardiovascular Cardiovascular exam: Present: irregular rhythm (irreg irreg), systolic murmur ( LUSB) - GI/Abdominal GI/Abdominal exam: Present: normal bowel sounds, soft, tenderness (LUQ secondary to splenic infarcts). Absent: organomegaly - exam: Present: circumcision, scrotal swelling, other (paredes with bld staining on dressing) - Extremities Exam Extremities exam: Absent: calf tenderness, edema - Lab Labs: Laboratory Last Values WBC 3.5 X 10^3uL (3.9-10.7) L 01/31/17 05:00 RBC 3.79 X 10^6uL (4.20-6.10) L 01/31/17 05:00 Hgb 10.2 g/dL (14.0-18.0) L 01/31/17 05:00 Hct 31.4 % (42.0-54.0) L 01/31/17 05:00 MCV 82.8 fL (80.0-100.0) D 01/31/17 05:00 MCH 27.0 pg (29.0-35.0) L 01/31/17 05:00 MCHC 32.6 g/dL (32.0-36.0) 01/31/17 05:00 RDW 23.1 % (11.5-14.5) H D 01/31/17 05:00 Plt Count 149 X 10^3uL (130-440) 01/31/17 05:00 MPV 9.6 fL (7.4-10.4) 01/31/17 05:00 Neutrophils % 62.3 % (54.0-75.0) 01/31/17 05:00 Lymphocytes % 24.1 % (20.0-40.0) 01/31/17 05:00 Eosinophils % 2.9 % (0.0-6.0) 01/31/17 05:00 Basophils % 0.2 % (0.0-2.0) 01/31/17 05:00 Neutrophils # 2.2 X 10^3uL (2.6-6.7) L 01/31/17 05:00 Lymphocytes # 0.8 X 10^3uL (0.8-3.8) 01/31/17 05:00 Monocytes 10.5 % (2.0-10.0) H 01/31/17 05:00 Monocytes # 0.4 X 10^3uL (0.2-1.0) 01/31/17 05:00 Eosinophils # 0.1 X 10^3uL (0.0-0.4) 01/31/17 05:00 Basophils # 0.0 X 10^3uL (0.0-0.1) 01/31/17 05:00 PT 18.2 sec (13.0-16.6) H 01/31/17 05:00 INR 1.1 01/31/17 05:00 Sodium 134 mmol/L (137-145) L 01/31/17 05:00 Potassium 4.1 mmol/L (3.5-5.1) 01/31/17 05:00 Chloride 100 mmol/L (98-107) 01/31/17 05:00 Carbon Dioxide 25 mmol/L (22-30) 01/31/17 05:00 BUN 45 mg/dL (9-20) H D 01/31/17 05:00 Creatinine 1.3 mg/dL (0.7-1.3) 01/31/17 05:00 GFR Calculation Not Reportable 01/31/17 05:00 Glucose 99 mg/dL (70-100) 01/31/17 05:00 Calcium 8.7 mg/dL (8.4-10.2) 01/31/17 05:00 Total Bilirubin 0.6 mg/dL (0.2-1.3) 01/31/17 05:00 AST 30 U/L (17-59) 01/31/17 05:00 ALT 36 U/L (21-72) 01/31/17 05:00 Alkaline Phosphatase 148 U/L (38-126) H 01/31/17 05:00 Total Protein 7.0 g/dL (6.3-8.2) 01/31/17 05:00 Albumin 3.1 g/dL (3.5-5.0) L 01/31/17 05:00 Albumin/Globulin Ratio 0.8 01/31/17 05:00 Urine Color Yellow 01/30/17 20:45 Urine Appearance Clear 01/30/17 20:45 Urine pH 7.0 (5-7) 01/30/17 20:45 Ur Specific [place] 1.020 (0.001-1.035) 01/30/17 20:45 Urine Protein 100mg/dl (2+) (NEG - TRACE) A 01/30/17 20:45 Urine Ketones Negative (NEGATIVE) 01/30/17 20:45 Urine Blood 250 jen/ul (3+) (NEGATIVE) A 01/30/17 20:45 Urine Nitrate Negative (NEGATIVE) 01/30/17 20:45 Urine Bilirubin Negative (NEGATIVE) 01/30/17 20:45 Urine Urobilinogen 0.2mg/dl (normal) (NEG-1mg/dL) 01/30/17 20:45 Ur Leukocyte Esterase Negative (NEGATIVE) 01/30/17 20:45 Urine RBC 0-5/hpf (0-5/hpf) 01/30/17 20:45 Urine WBC None seen (0-4/hpf) 01/30/17 20:45 Ur Squamous Epith Cells None seen (<= 15/hpf) 01/30/17 20:45 Urine Bacteria None seen (<10/hpf) 01/30/17 20:45 Urine Mucus None seen (Up to 25%) 01/30/17 20:45 Urine Glucose Normal (NEGATIVE) 01/30/17 20:45 Vancomycin Trough 11.5 ug/mL (5.0-20.0) 01/31/17 20:30 Assessment and Plan - Date of Encounter Date of Encounter: 02/02/17 (1) mycotic thoracoabdominial aneurysm Status: Acute Assessment and plan: S/P physician modified endograft, Dr Burdick Vancomycin and Levaquin until 02/26/17 Vanco trough, labs followed by [facility] (Call [phone]). Vanco trough goal 15-20. Watch for back/abd pain which should prompt chest/abd/pelvic CT and possible abd ultrasound Reviewed with pt and family treatment plan Current Visit: Yes (2) Atrial fibrillation Status: Acute Assessment and plan: Amiodarone, Metoprolol Plavix, Xarelto Cardiology Current Visit: Yes (3) HTN (hypertension) Status: Acute Assessment and plan: Hydralazine, Isosorbide, Metoprolol tartrate, Terazosin. No PETER/ARB! Poor control Increase Terazosin to 10mg QHS Current Visit: Yes (4) Hyperlipidemia Status: Acute Assessment and plan: Atovarstatin Current Visit: Yes (5) Acute on chronic heart failure Status: Acute Assessment and plan: Cardiology Metoprolol Current Visit: Yes (6) Acute kidney injury (nontraumatic) Status: Acute Assessment and plan: Improved Cr 1.3 No PETER/ARB! Current Visit: Yes (7) Fever of unknown origin (FUO) Status: Acute Assessment and plan: Secondary to mycotic aneurysm. No fever since surgery and antibiotics. Current Visit: Yes (8) Thrombocytopenia Status: Resolved Assessment and plan: Improved Secondary to Rocephin Current Visit: Yes (9) Hypoxia Status: Acute Assessment and plan: O2 @ 3 l/min Anoro Ellipta Inh, Albuterol HFA prn Current Visit: Yes (10) Urinary retention Status: Acute Assessment and plan: Urgent circumcision, persistent bleeding secondary to bld thinners Urinary retention with PVR, [facility] Current Visit: Yes (11) Paraphimosis Status: Acute Assessment and plan: Urgent circumcision, persistent bleeding secondary to bld thinners Urinary retention with PVR, [facility] Current Visit: Yes (12) Splenic infarct Status: Acute Assessment and plan: LUQ abd pain Secondary to multi small infarcts due to emboli Xarelto Slowly improving Current Visit: Yes - Time Spent With Patient Total time spent with greater than 50% in coordination of care (as documented) at patient's floor/unit and/or counseling patient:
[2017-02-02] MEDS: ACETAMINOPHEN 325 MG TABLET PO PRN (16:59)
[2017-02-02] MEDS: ATORVASTATIN CALCIUIM 40 MG TABLET PO SCH (20:42)
[2017-02-02] MEDS: VANCOMYCIN HCL 1,250 MG in NORMAL SALINE 250 ML IV SCH (20:42)
[2017-02-02] MEDS: MELATONIN 3 MG TABLET PO SCH (20:43)
[2017-02-02] MEDS: DOCUSATE SODIUM 100 MG/10 ML UDC PO SCH (20:46)
[2017-02-02] MEDS: traZODone HCL 50 MG TABLET PO PRN (20:46)
[2017-02-02] MEDS: TERAZOSIN HCL 5 MG CAPSULE PO SCH (20:48)
[2017-02-02] MEDS ORDERED: REMOVE PATCH 1 PATCH PATCH TRANSDERM SCH (21:00)
[2017-02-03] MEDS: traMADol HCL 50 MG TABLET PO PRN ×2 (03:58→20:00)
[2017-02-03] MEDS: LEVOTHYROXINE 75 MCG TABLET PO SCH (06:21)
[2017-02-03] MEDS: LEVOTHYROXINE 100 MCG TABLET PO SCH (06:21)
[2017-02-03] MEDS: PANTOPRAZOLE 40 MG TABLET PO SCH (06:21)
--- NOTE | 2017-02-03 08:24 | PROGRESS NOTE: IM APSO ---
Assessment and Plan - Date of Encounter Date of Encounter: 02/03/17 (1) mycotic thoracoabdominial aneurysm Status: Acute Assessment and plan: Status post physician modified endograft. Stable clinically. Continues rehabilitation. Remains on anticoagulant as well as Plavix. Afebrile. Remains on vancomycin and levofloxacin. Current Visit: Yes (2) Acute on chronic heart failure Status: Acute Assessment and plan: Clinically stable. Kidney on current medication regimen. Current Visit: Yes (3) Atrial fibrillation Status: Chronic Assessment and plan: Rate is well controlled. He remains on anticoagulation. Current Visit: Yes (4) HTN (hypertension) Status: Chronic Assessment and plan: Blood pressure remains mildly elevated. Terazosin dose increased just yesterday. Reassess tomorrow morning. May need to further titrate medications. No evidence of cardiac decompensation. Current Visit: Yes (5) Acute kidney injury (nontraumatic) Status: Acute Assessment and plan: Kidney function approaching baseline. Continue cardiac management. Urinary retention issues being addressed as below. Current Visit: Yes (6) Fever of unknown origin (FUO) Status: Acute Assessment and plan: As above, remains on levofloxacin and vancomycin. Afebrile. Follow clinically. Current Visit: Yes (7) Hyperlipidemia Status: Chronic Current Visit: Yes (8) Hypoxia Status: Acute Assessment and plan: Mild. Stable. In the setting of significant cardiac situation as above. Continue to ambulate. Wean oxygen as able. Current Visit: Yes (9) Paraphimosis Status: Acute Assessment and plan: Status post urgent procedural intervention. Paredes catheter now in place. Mild bleeding in the setting of anticoagulation. Follow clinically. Current Visit: Yes (10) Splenic infarct Status: Acute Assessment and plan: Still with some residual pain. On anticoagulation. Continue Tylenol, tramadol , lidocaine patch. Current Visit: Yes (11) Urinary retention Status: Acute Assessment and plan: Paredes catheter in place. Renal function improving. On terazosin. Current Visit: Yes (12) DVT prophylaxis Status: Acute Assessment and plan: Remains on full anticoagulation. Current Visit: Yes - Time Spent With Patient Total time spent with greater than 50% in coordination of care (as documented) at patient's floor/unit and/or counseling patient: 16-24 minutes IM: PN Subjective General: fatigue, malaise, confusion (Mild, with images versus vivid dreams when he closes his eyes. Somewhat distressing to him.), no fever, no chills HEENT: no visual changes, no headache Cardiovascular: no chest pain, no palpitations Respiratory: cough (Mild.), no sputum, no wheeze, no SOB Gastrointestinal: constipation (2 days since last), no abdominal pain, no nausea , no vomiting Genitourinary: other (Paredes catheter in place.) Musculoskeletal: no other (back pain, left lower) Integumentary: no rashes Neurological: no numbness, no tingling IM: PN Objective Exam - I&O/Vital Signs I&O: Intake & Output 02/02/17 02/03/17 02/03/17 21:59 05:59 13:59 Intake Total 540 300 Output Total 500 700 Balance 40 -400 Weight 87.09 kg Intake: Oral 540 300 Output: Urine 500 700 Other: Urine Appearance Clear Clear Clear Urine Color Yellow Yellow Yellow Voiding Method Indwelling Catheter Indwelling Catheter Indwelling Catheter Vital Signs: Last Vital Signs Temp 37.1 C 02/03/17 05:53 Pulse 65 02/03/17 05:53 Resp 16 02/03/17 07:38 BP 157/79 02/03/17 05:53 Pulse Ox 94 02/03/17 07:38 Oxygen Flow Rate 2 Oxygen Delivery Method Nasal Cannula - Constitutional General appearance: Absent: acute distress - Head Head exam: Present: atraumatic - Eye Eye exam: Present: normal appearance - ENT ENT exam: Present: mucous membranes moist - Respiratory Respiratory exam: Present: decreased breath sounds, rales (Minimal, right greater than left basilar.). Absent: wheezes - Cardiovascular Cardiovascular exam: Present: irregular rhythm (irreg irreg), systolic murmur ( LUSB) - GI/Abdominal GI/Abdominal exam: Present: normal bowel sounds, soft, tenderness (LUQ secondary to splenic infarcts). Absent: organomegaly - exam: Present: circumcision, scrotal swelling, other (paredes) - Extremities Exam Extremities exam: Present: edema (Trace, left greater than right.). Absent: calf tenderness, Neo's Sign - Neurological Exam Neurological exam: Present: oriented X3 - Psychiatric Psychiatric exam: Absent: anxious, depressed - Allied Health Notes Allied health notes reviewed: nursing - Lab Labs: Laboratory Last Values WBC 3.5 X 10^3uL (3.9-10.7) L 01/31/17 05:00 RBC 3.79 X 10^6uL (4.20-6.10) L 01/31/17 05:00 Hgb 10.2 g/dL (14.0-18.0) L 01/31/17 05:00 Hct 31.4 % (42.0-54.0) L 01/31/17 05:00 MCV 82.8 fL (80.0-100.0) D 01/31/17 05:00 MCH 27.0 pg (29.0-35.0) L 01/31/17 05:00 MCHC 32.6 g/dL (32.0-36.0) 01/31/17 05:00 RDW 23.1 % (11.5-14.5) H D 01/31/17 05:00 Plt Count 149 X 10^3uL (130-440) 01/31/17 05:00 MPV 9.6 fL (7.4-10.4) 01/31/17 05:00 Neutrophils % 62.3 % (54.0-75.0) 01/31/17 05:00 Lymphocytes % 24.1 % (20.0-40.0) 01/31/17 05:00 Eosinophils % 2.9 % (0.0-6.0) 01/31/17 05:00 Basophils % 0.2 % (0.0-2.0) 01/31/17 05:00 Neutrophils # 2.2 X 10^3uL (2.6-6.7) L 01/31/17 05:00 Lymphocytes # 0.8 X 10^3uL (0.8-3.8) 01/31/17 05:00 Monocytes 10.5 % (2.0-10.0) H 01/31/17 05:00 Monocytes # 0.4 X 10^3uL (0.2-1.0) 01/31/17 05:00 Eosinophils # 0.1 X 10^3uL (0.0-0.4) 01/31/17 05:00 Basophils # 0.0 X 10^3uL (0.0-0.1) 01/31/17 05:00 PT 18.2 sec (13.0-16.6) H 01/31/17 05:00 INR 1.1 01/31/17 05:00 Sodium 134 mmol/L (137-145) L 01/31/17 05:00 Potassium 4.1 mmol/L (3.5-5.1) 01/31/17 05:00 Chloride 100 mmol/L (98-107) 01/31/17 05:00 Carbon Dioxide 25 mmol/L (22-30) 01/31/17 05:00 BUN 45 mg/dL (9-20) H D 01/31/17 05:00 Creatinine 1.3 mg/dL (0.7-1.3) 01/31/17 05:00 GFR Calculation Not Reportable 01/31/17 05:00 Glucose 99 mg/dL (70-100) 01/31/17 05:00 Calcium 8.7 mg/dL (8.4-10.2) 01/31/17 05:00 Total Bilirubin 0.6 mg/dL (0.2-1.3) 01/31/17 05:00 AST 30 U/L (17-59) 01/31/17 05:00 ALT 36 U/L (21-72) 01/31/17 05:00 Alkaline Phosphatase 148 U/L (38-126) H 01/31/17 05:00 Total Protein 7.0 g/dL (6.3-8.2) 01/31/17 05:00 Albumin 3.1 g/dL (3.5-5.0) L 01/31/17 05:00 Albumin/Globulin Ratio 0.8 01/31/17 05:00 Urine Color Yellow 01/30/17 20:45 Urine Appearance Clear 01/30/17 20:45 Urine pH 7.0 (5-7) 01/30/17 20:45 Ur Specific [place] 1.020 (0.001-1.035) 01/30/17 20:45 Urine Protein 100mg/dl (2+) (NEG - TRACE) A 01/30/17 20:45 Urine Ketones Negative (NEGATIVE) 01/30/17 20:45 Urine Blood 250 jen/ul (3+) (NEGATIVE) A 01/30/17 20:45 Urine Nitrate Negative (NEGATIVE) 01/30/17 20:45 Urine Bilirubin Negative (NEGATIVE) 01/30/17 20:45 Urine Urobilinogen 0.2mg/dl (normal) (NEG-1mg/dL) 01/30/17 20:45 Ur Leukocyte Esterase Negative (NEGATIVE) 01/30/17 20:45 Urine RBC 0-5/hpf (0-5/hpf) 01/30/17 20:45 Urine WBC None seen (0-4/hpf) 01/30/17 20:45 Ur Squamous Epith Cells None seen (<= 15/hpf) 01/30/17 20:45 Urine Bacteria None seen (<10/hpf) 01/30/17 20:45 Urine Mucus None seen (Up to 25%) 01/30/17 20:45 Urine Glucose Normal (NEGATIVE) 01/30/17 20:45 Vancomycin Trough 11.5 ug/mL (5.0-20.0) 01/31/17 20:30 (2) Acute on chronic heart failure Qualifiers: Heart failure type: systolic Qualified Code(s): I50.23 - Acute on chronic systolic (congestive) heart failure (3) Atrial fibrillation Qualifiers: Atrial fibrillation type: chronic Qualified Code(s): I48.2 - Chronic atrial fibrillation (4) HTN (hypertension) Qualifiers: Hypertension type: essential hypertension Qualified Code(s): I10 - Essential (primary) hypertension (7) Hyperlipidemia Qualifiers: Hyperlipidemia type: unspecified Qualified Code(s): E78.5 - Hyperlipidemia, unspecified
[2017-02-03] MEDS: ACETAMINOPHEN 325 MG TABLET PO PRN ×3 (08:34→21:10)
[2017-02-03] MEDS: RIVAROXABAN 10 MG TABLET PO SCH (08:34)
[2017-02-03] MEDS: AMIODARONE HCL 200 MG TABLET PO SCH (08:35)
[2017-02-03] MEDS: ISOSORBIDE DINITRATE 10 MG TABLET PO SCH ×3 (08:35→21:11)
[2017-02-03] MEDS: CLOPIDOGREL BISULFATE 75 MG TABLET PO SCH (08:35)
[2017-02-03] MEDS: MULTIVITAMINS THERAPEUTIC 1 TABLET PO SCH (08:35)
[2017-02-03] MEDS: hydrALAZINE HCL 10 MG TABLET PO SCH ×3 (08:35→21:10)
[2017-02-03] MEDS: BACITRACIN 1 APP/PKT PKT TOPICAL SCH ×2 (08:36→21:09)
[2017-02-03] MEDS: MAGNESIUM HYDROXIDE 30 ML UDC PO SCH (08:36)
[2017-02-03] MEDS: REMOVE PATCH 1 PATCH PATCH TRANSDERM SCH (08:36)
[2017-02-03] MEDS: VILANTEROL TR INHALATION SCH (08:45)
[2017-02-03] MEDS: UMECLIDINIUM BRM INHALATION SCH (08:45)
[2017-02-03] MEDS: POLYETHYLENE GLYCOL 3350 17 GM POWD.PACK PO PRN (08:50)
[2017-02-03] MEDS: LEVOFLOXACIN 250 MG TABLET PO SCH (20:43)
[2017-02-03] MEDS ORDERED: SENNOSIDES/DOCUSATE SODIUM 1 TAB TABLET PO SCH (21:00)
[2017-02-03 21:07] LABS: BASOPHILS 0.4 % (0.0-2.0); EOSINOPHILS 2.9 % (0.0-6.0); EOSINOPHILS# 0.1 X 10^3uL (0.0-0.4); HEMATOCRIT 30.5 % (42.0-54.0); HEMOGLOBIN 10.1 g/dL (14.0-18.0); LYMPHOCYTES 20.7 % (20.0-40.0); LYMPHOCYTES# 0.9 X 10^3uL (0.8-3.8); MEAN CELL VOLUME 83.2 fL (80.0-100.0); MEAN CORPUS. HGB CONCENTRATION 32.9 g/dL (32.0-36.0); MEAN CORPUSCULAR HEMOGLOBIN 27.4 pg (29.0-35.0); MEAN PLATELET VOLUME 8.6 fL (7.4-10.4); MONOCYTES 9.6 % (2.0-10.0); MONOCYTES# 0.4 X 10^3uL (0.2-1.0); NEUTROPHILS 66.4 % (54.0-75.0); NEUTROPHILS# 2.8 X 10^3uL (2.6-6.7); RED BLOOD COUNT 3.67 X 10^6uL (4.20-6.10); RED CELL DISTRIBUTION WIDTH 23.7 % (11.5-14.5); WHITE BLOOD COUNT 4.2 X 10^3uL (3.9-10.7)
[2017-02-03] MEDS: LIDOCAINE 5% 1 PATCH PATCH TOPICAL SCH (21:08)
[2017-02-03] MEDS: TERAZOSIN HCL 5 MG CAPSULE PO SCH (21:10)
[2017-02-03] MEDS: ATORVASTATIN CALCIUIM 40 MG TABLET PO SCH (21:10)
[2017-02-03] MEDS: MELATONIN 3 MG TABLET PO SCH (21:11)
[2017-02-03 21:13] LABS: A/G RATIO 0.8; ALBUMIN 3.1 g/dL (3.5-5.0); ALKALINE PHOSPHATASE 159 U/L (38-126); ALT 35 U/L (21-72); AST 30 U/L (17-59); BILIRUBIN, TOTAL 0.5 mg/dL (0.2-1.3); BLOOD UREA NITROGEN 35 mg/dL (9-20); CALCIUM 8.9 mg/dL (8.4-10.2); CHLORIDE 103 mmol/L (98-107); GLUCOSE 105 mg/dL (70-100); POTASSIUM 4.9 mmol/L (3.5-5.1); SODIUM 134 mmol/L (137-145); TOTAL PROTEIN 6.9 g/dL (6.3-8.2)
[2017-02-03] MEDS: VANCOMYCIN HCL 1,250 MG in NORMAL SALINE 250 ML IV SCH (21:59)
[2017-02-03] MEDS: traZODone HCL 50 MG TABLET PO PRN (23:30)
[2017-02-04] MEDS: PANTOPRAZOLE 40 MG TABLET PO SCH (06:15)
[2017-02-04] MEDS: LEVOTHYROXINE 100 MCG TABLET PO SCH (06:15)
[2017-02-04] MEDS: LEVOTHYROXINE 75 MCG TABLET PO SCH (06:15)
[2017-02-04] MEDS: traMADol HCL 50 MG TABLET PO PRN (06:32)
[2017-02-04] MEDS: ACETAMINOPHEN 325 MG TABLET PO PRN ×3 (06:35→21:15)
[2017-02-04] MEDS: RIVAROXABAN 10 MG TABLET PO SCH (08:39)
[2017-02-04] MEDS: BACITRACIN 1 APP/PKT PKT TOPICAL SCH ×2 (08:39→20:18)
[2017-02-04] MEDS: AMIODARONE HCL 200 MG TABLET PO SCH (08:40)
[2017-02-04] MEDS: CLOPIDOGREL BISULFATE 75 MG TABLET PO SCH (08:40)
[2017-02-04] MEDS: MULTIVITAMINS THERAPEUTIC 1 TABLET PO SCH (08:40)
[2017-02-04] MEDS: hydrALAZINE HCL 10 MG TABLET PO SCH ×3 (08:40→20:23)
[2017-02-04] MEDS: ISOSORBIDE DINITRATE 10 MG TABLET PO SCH ×3 (08:41→20:24)
[2017-02-04] MEDS: VILANTEROL TR INHALATION SCH (08:41)
[2017-02-04] MEDS: UMECLIDINIUM BRM INHALATION SCH (08:41)
[2017-02-04] MEDS: REMOVE PATCH 1 PATCH PATCH TRANSDERM SCH (08:42)
--- NOTE | 2017-02-04 09:07 | PROGRESS NOTE: IM APSO ---
Assessment and Plan - Date of Encounter Date of Encounter: 02/04/17 (1) mycotic thoracoabdominial aneurysm Status: Acute Assessment and plan: Status post physician modified endograft. Stable clinically. Continues rehabilitation. Remains on anticoagulant as well as Plavix. Afebrile. Remains on vancomycin and levofloxacin. Vancomycin trough was at goal. No change in treatment plan today. Anemia issues as below. Current Visit: Yes (2) Anemia, blood loss Status: Acute Assessment and plan: Moderate anemia without significant worsening. Microcytosis. Ongoing oozing/ blood loss on anticoagulant and Plavix. Cannot stop either of these medications. Assess reticulocyte count and iron studies. Will likely need iron. Does not require transfusion at this time. Current Visit: Yes (3) Hallucinations Status: Acute Assessment and plan: Likely multifactorial. Some degree of confusion in association with procedures on hospitalization. Multiple medications which could be contributing including tramadol, trazodone, levofloxacin. We discussed options at length. These are quite distressing for him, more so at night. Stop trazodone. Start low-dose Seroquel. Side effects reviewed. EKG in the morning to reassess QT interval considering concurrent levofloxacin. May need to reconsider and/or stop amiodarone if significant prolongation develops. We did discuss a low-dose benzodiazepine to help with anxiety and panic. However, I am concerned that this will worsen confusion. Will hold off for now. Current Visit: Yes (4) Acute on chronic heart failure Status: Acute Assessment and plan: Clinically stable. Continue on current medication regimen. Current Visit: Yes (5) Atrial fibrillation Status: Chronic Assessment and plan: Rate is well controlled and sounds to be in sinus rhythm this morning. He remains on anticoagulation. Current Visit: Yes (6) HTN (hypertension) Status: Chronic Assessment and plan: Blood pressure remains mildly elevated in the mornings but was low yesterday p.m.. Terazosin dose increased Sunday. No evidence of cardiac decompensation. Continue current regimen for now and follow with cardiology. Current Visit: Yes (7) Acute kidney injury (nontraumatic) Status: Acute Assessment and plan: Kidney function approaching baseline. Continue cardiac management. Urinary retention issues being addressed as below. Current Visit: Yes (8) Fever of unknown origin (FUO) Status: Acute Assessment and plan: As above, remains on levofloxacin and vancomycin. Afebrile. Follow clinically. Current Visit: Yes (9) Hyperlipidemia Status: Chronic Current Visit: Yes (10) Hypoxia Status: Acute Assessment and plan: Mild. Stable. In the setting of significant cardiac situation as above. Continue to ambulate. Wean oxygen as able. Current Visit: Yes (11) Paraphimosis Status: Acute Assessment and plan: Status post urgent procedural intervention. Paredes catheter now in place. Mild bleeding in the setting of anticoagulation. Follow clinically. Current Visit: Yes (12) Splenic infarct Status: Acute Assessment and plan: Continues to have pain in the left abdomen and left lower back. On anticoagulation. Continue Tylenol, tramadol, lidocaine patch. Current Visit: Yes (13) Urinary retention Status: Acute Assessment and plan: Paredes catheter in place. Renal function improving. On terazosin. Current Visit: Yes (14) DVT prophylaxis Status: Acute Current Visit: Yes - Time Spent With Patient Total time spent with greater than 50% in coordination of care (as documented) at patient's floor/unit and/or counseling patient: 25 - 35 minutes IM: PN Subjective General: fatigue, malaise, confusion (Mild, with images versus vivid dreams/ nightmares. Now becoming more distressing to him.), no fever, no chills HEENT: no visual changes, no headache Cardiovascular: no chest pain, no palpitations Respiratory: cough (Mild.), no sputum, no wheeze, no SOB Gastrointestinal: no abdominal pain, no nausea, no vomiting Genitourinary: other (Paredes catheter in place.) Musculoskeletal: no other (back pain, left lower) Integumentary: no rashes Neurological: no numbness, no tingling IM: PN Objective Exam - I&O/Vital Signs I&O: Intake & Output 02/03/17 02/04/17 02/04/17 21:59 05:59 13:59 Intake Total 1240 650 Output Total 650 1650 Balance 590 -1000 Intake: IV 300 Right Upper arm 300 Oral 1240 350 Output: Urine 650 1650 Other: Urine Appearance Clear Urine Color Yellow Uretheral (Paredes) Yellow Voiding Method Indwelling Catheter # Bowel Movements 1 Vital Signs: Last Vital Signs Temp 37.0 C 02/04/17 07:00 Pulse 75 02/04/17 07:00 Resp 17 02/04/17 07:00 BP 174/73 07/16/17 07:00 Pulse Ox 94 02/04/17 07:00 Oxygen Flow Rate 1.5 Oxygen Delivery Method Nasal Cannula - Constitutional General appearance: Absent: acute distress - Head Head exam: Present: atraumatic - Eye Eye exam: Present: normal appearance - ENT ENT exam: Present: mucous membranes moist - Respiratory Respiratory exam: Present: decreased breath sounds, rales (Minimal, right greater than left basilar.). Absent: wheezes - Cardiovascular Cardiovascular exam: Present: RRR, systolic murmur (LUSB). Absent: S3, S4 - GI/Abdominal GI/Abdominal exam: Present: normal bowel sounds, soft, tenderness (LUQ secondary to splenic infarcts). Absent: organomegaly - exam: Present: circumcision, scrotal swelling, other (paredes) - Extremities Exam Extremities exam: Present: edema (Trace, left greater than right.). Absent: calf tenderness, Neo's Sign - Neurological Exam Neurological exam: Present: oriented X3 - Psychiatric Psychiatric exam: Absent: anxious, depressed - Allied Health Notes Allied health notes reviewed: nursing, PT - Lab Labs: Laboratory Last Values WBC 4.2 X 10^3uL (3.9-10.7) 02/03/17 20:53 RBC 3.67 X 10^6uL (4.20-6.10) L 02/03/17 20:53 Hgb 10.1 g/dL (14.0-18.0) L 02/03/17 20:53 Hct 30.5 % (42.0-54.0) L 02/03/17 20:53 MCV 83.2 fL (80.0-100.0) 02/03/17 20:53 MCH 27.4 pg (29.0-35.0) L 02/03/17 20:53 MCHC 32.9 g/dL (32.0-36.0) 02/03/17 20:53 RDW 23.7 % (11.5-14.5) H 02/03/17 20:53 Plt Count 196 X 10^3uL (130-440) 02/03/17 20:53 MPV 8.6 fL (7.4-10.4) 02/03/17 20:53 Neutrophils % 66.4 % (54.0-75.0) 02/03/17 20:53 Lymphocytes % 20.7 % (20.0-40.0) 02/03/17 20:53 Eosinophils % 2.9 % (0.0-6.0) 02/03/17 20:53 Basophils % 0.4 % (0.0-2.0) 02/03/17 20:53 Neutrophils # 2.8 X 10^3uL (2.6-6.7) 02/03/17 20:53 Lymphocytes # 0.9 X 10^3uL (0.8-3.8) 02/03/17 20:53 Monocytes 9.6 % (2.0-10.0) 02/03/17 20:53 Monocytes # 0.4 X 10^3uL (0.2-1.0) 02/03/17 20:53 Eosinophils # 0.1 X 10^3uL (0.0-0.4) 02/03/17 20:53 Basophils # 0.0 X 10^3uL (0.0-0.1) 02/03/17 20:53 PT 18.2 sec (13.0-16.6) H 01/31/17 05:00 INR 1.1 01/31/17 05:00 Sodium 134 mmol/L (137-145) L 02/03/17 20:53 Potassium 4.9 mmol/L (3.5-5.1) 02/03/17 20:53 Chloride 103 mmol/L (98-107) 02/03/17 20:53 Carbon Dioxide 23 mmol/L (22-30) 02/03/17 20:53 BUN 35 mg/dL (9-20) H 02/03/17 20:53 Creatinine 1.2 mg/dL (0.7-1.3) 02/03/17 20:53 GFR Calculation Not Reportable 02/03/17 20:53 Glucose 105 mg/dL (70-100) H 02/03/17 20:53 Calcium 8.9 mg/dL (8.4-10.2) 02/03/17 20:53 Total Bilirubin 0.5 mg/dL (0.2-1.3) 02/03/17 20:53 AST 30 U/L (17-59) 02/03/17 20:53 ALT 35 U/L (21-72) 02/03/17 20:53 Alkaline Phosphatase 159 U/L (38-126) H 02/03/17 20:53 Total Protein 6.9 g/dL (6.3-8.2) 02/03/17 20:53 Albumin 3.1 g/dL (3.5-5.0) L 02/03/17 20:53 Albumin/Globulin Ratio 0.8 02/03/17 20:53 Urine Color Yellow 01/30/17 20:45 Urine Appearance Clear 01/30/17 20:45 Urine pH 7.0 (5-7) 01/30/17 20:45 Ur Specific [place] 1.020 (0.001-1.035) 01/30/17 20:45 Urine Protein 100mg/dl (2+) (NEG - TRACE) A 01/30/17 20:45 Urine Ketones Negative (NEGATIVE) 01/30/17 20:45 Urine Blood 250 jen/ul (3+) (NEGATIVE) A 01/30/17 20:45 Urine Nitrate Negative (NEGATIVE) 01/30/17 20:45 Urine Bilirubin Negative (NEGATIVE) 01/30/17 20:45 Urine Urobilinogen 0.2mg/dl (normal) (NEG-1mg/dL) 01/30/17 20:45 Ur Leukocyte Esterase Negative (NEGATIVE) 01/30/17 20:45 Urine RBC 0-5/hpf (0-5/hpf) 01/30/17 20:45 Urine WBC None seen (0-4/hpf) 01/30/17 20:45 Ur Squamous Epith Cells None seen (<= 15/hpf) 01/30/17 20:45 Urine Bacteria None seen (<10/hpf) 01/30/17 20:45 Urine Mucus None seen (Up to 25%) 01/30/17 20:45 Urine Glucose Normal (NEGATIVE) 01/30/17 20:45 Vancomycin Trough 16.2 ug/mL (5.0-20.0) 02/03/17 20:53 (4) Acute on chronic heart failure Qualifiers: Heart failure type: systolic Qualified Code(s): I50.23 - Acute on chronic systolic (congestive) heart failure (5) Atrial fibrillation Qualifiers: Atrial fibrillation type: paroxysmal Qualified Code(s): I48.0 - Paroxysmal atrial fibrillation (6) HTN (hypertension) Qualifiers: Hypertension type: essential hypertension Qualified Code(s): I10 - Essential (primary) hypertension (9) Hyperlipidemia Qualifiers: Hyperlipidemia type: unspecified Qualified Code(s): E78.5 - Hyperlipidemia, unspecified
[2017-02-04] MEDS: MAGNESIUM HYDROXIDE 30 ML UDC PO SCH (12:34)
[2017-02-04] MEDS: ATORVASTATIN CALCIUIM 40 MG TABLET PO SCH (20:24)
[2017-02-04] MEDS: LIDOCAINE 5% 1 PATCH PATCH TOPICAL SCH (20:24)
[2017-02-04] MEDS: TERAZOSIN HCL 5 MG CAPSULE PO SCH (20:24)
[2017-02-04] MEDS: MELATONIN 3 MG TABLET PO SCH (20:25)
[2017-02-04] MEDS: SENNOSIDES/DOCUSATE SODIUM 1 TAB TABLET PO SCH (20:25)
[2017-02-04] MEDS ORDERED: QUETIAPINE FUMARATE 25 MG TABLET ONE (20:36)
[2017-02-04] MEDS: VANCOMYCIN HCL 1,250 MG in NORMAL SALINE 250 ML IV SCH (20:55)
[2017-02-04] MEDS ORDERED: QUETIAPINE FUMARATE 100 MG TABLET PO SCH (21:00)
[2017-02-05] MEDS: PANTOPRAZOLE 40 MG TABLET PO SCH (05:52)
[2017-02-05] MEDS: LEVOTHYROXINE 100 MCG TABLET PO SCH (05:52)
[2017-02-05] MEDS: LEVOTHYROXINE 75 MCG TABLET PO SCH (05:52)
[2017-02-05 07:04] LABS: BASOPHILS 0.1 % (0.0-2.0); EOSINOPHILS 3.2 % (0.0-6.0); EOSINOPHILS# 0.1 X 10^3uL (0.0-0.4); HEMATOCRIT 31.3 % (42.0-54.0); HEMOGLOBIN 10.1 g/dL (14.0-18.0); LYMPHOCYTES 27.5 % (20.0-40.0); LYMPHOCYTES# 0.9 X 10^3uL (0.8-3.8); MEAN CELL VOLUME 83.8 fL (80.0-100.0); MEAN CORPUS. HGB CONCENTRATION 32.2 g/dL (32.0-36.0); MEAN PLATELET VOLUME 8.9 fL (7.4-10.4); MONOCYTES 12.1 % (2.0-10.0); MONOCYTES# 0.4 X 10^3uL (0.2-1.0); NEUTROPHILS 57.1 % (54.0-75.0); NEUTROPHILS# 1.9 X 10^3uL (2.6-6.7); RED BLOOD COUNT 3.73 X 10^6uL (4.20-6.10); WHITE BLOOD COUNT 3.3 X 10^3uL (3.9-10.7)
[2017-02-05 07:06] LABS: RED CELL DISTRIBUTION WIDTH 23.6 % (11.5-14.5)
[2017-02-05] MEDS: CLOPIDOGREL BISULFATE 75 MG TABLET PO SCH (08:10)
[2017-02-05] MEDS: BACITRACIN 1 APP/PKT PKT TOPICAL SCH ×2 (08:10→20:39)
[2017-02-05] MEDS: AMIODARONE HCL 200 MG TABLET PO SCH (08:10)
[2017-02-05] MEDS: hydrALAZINE HCL 10 MG TABLET PO SCH ×3 (08:10→20:40)
[2017-02-05] MEDS: ISOSORBIDE DINITRATE 10 MG TABLET PO SCH ×3 (08:11→20:40)
[2017-02-05] MEDS: MULTIVITAMINS THERAPEUTIC 1 TABLET PO SCH (08:11)
[2017-02-05] MEDS: UMECLIDINIUM BRM INHALATION SCH (08:11)
[2017-02-05] MEDS: RIVAROXABAN 10 MG TABLET PO SCH (08:11)
[2017-02-05] MEDS: VILANTEROL TR INHALATION SCH (08:11)
[2017-02-05] MEDS: REMOVE PATCH 1 PATCH PATCH TRANSDERM SCH ×2 (08:12→08:14)
[2017-02-05] MEDS: MAGNESIUM HYDROXIDE 30 ML UDC PO SCH (11:30)
--- NOTE | 2017-02-05 13:12 | PROGRESS NOTE: IM SOAP ---
IM: PN Subjective Interval history: Visual hallucinations at night. Seroquel help with sleep but than worse when awoke. Some anxiety currently. He suspects that he will do better at home. General: no confusion Cardiovascular: no chest pain Respiratory: no SOB Gastrointestinal: no abdominal pain Genitourinary: other (Eddy catheter in place.) Musculoskeletal: no other (back pain none) IM: PN Objective Exam - I&O/Vital Signs I&O: Intake & Output 02/04/17 02/05/17 02/05/17 21:59 05:59 13:59 Intake Total 1030 550 250 Output Total 1650 Balance 1030 -1100 250 Weight 84.822 kg Intake: IV 0 300 Right Upper arm 0 300 Oral 1030 250 250 Output: Urine 1650 Other: Urine Appearance Clear Clear Clear Urine Color Yellow Yellow Yellow Straw Uretheral (Eddy) Yellow Yellow Stool Size Moderate Moderate Stool Characteristics Formed Formed Hard Hard Brown Brown Voiding Method Indwelling Catheter Indwelling Catheter Indwelling Catheter # Bowel Movements 1 Vital Signs: Last Vital Signs Temp 36.6 C 02/05/17 10:38 Pulse 78 02/05/17 10:38 Resp 24 02/05/17 10:38 BP 161/67 02/05/17 10:38 Pulse Ox 94 02/05/17 10:38 Oxygen Flow Rate 2 Oxygen Delivery Method Nasal Cannula - Constitutional General appearance: Absent: acute distress - Respiratory Respiratory exam: Absent: rales - Cardiovascular Cardiovascular exam: Present: RRR. Absent: systolic murmur - GI/Abdominal GI/Abdominal exam: Present: normal bowel sounds, soft, tenderness (LUQ secondary to splenic infarcts) - exam: Present: circumcision, scrotal swelling - Extremities Exam Extremities exam: Absent: calf tenderness, Neo's Sign, edema - Psychiatric Psychiatric exam: Absent: anxious - Lab Labs: Laboratory Last Values WBC 3.3 X 10^3uL (3.9-10.7) L 02/05/17 06:15 RBC 3.73 X 10^6uL (4.20-6.10) L 02/05/17 06:15 Hgb 10.1 g/dL (14.0-18.0) L 02/05/17 06:15 Hct 31.3 % (42.0-54.0) L 02/05/17 06:15 MCV 83.8 fL (80.0-100.0) 02/05/17 06:15 MCH 27.0 pg (29.0-35.0) L 02/05/17 06:15 MCHC 32.2 g/dL (32.0-36.0) 02/05/17 06:15 RDW 23.6 % (11.5-14.5) H 02/05/17 06:15 Plt Count 187 X 10^3uL (130-440) 02/05/17 06:15 MPV 8.9 fL (7.4-10.4) 02/05/17 06:15 Neutrophils % 57.1 % (54.0-75.0) 02/05/17 06:15 Lymphocytes % 27.5 % (20.0-40.0) 02/05/17 06:15 Eosinophils % 3.2 % (0.0-6.0) 02/05/17 06:15 Basophils % 0.1 % (0.0-2.0) 02/05/17 06:15 Neutrophils # 1.9 X 10^3uL (2.6-6.7) L 02/05/17 06:15 Lymphocytes # 0.9 X 10^3uL (0.8-3.8) 02/05/17 06:15 Monocytes 12.1 % (2.0-10.0) H 02/05/17 06:15 Monocytes # 0.4 X 10^3uL (0.2-1.0) 02/05/17 06:15 Eosinophils # 0.1 X 10^3uL (0.0-0.4) 02/05/17 06:15 Basophils # 0.0 X 10^3uL (0.0-0.1) 02/05/17 06:15 PT 18.2 sec (13.0-16.6) H 01/31/17 05:00 INR 1.1 01/31/17 05:00 Sodium 134 mmol/L (137-145) L 02/03/17 20:53 Potassium 4.9 mmol/L (3.5-5.1) 02/03/17 20:53 Chloride 103 mmol/L (98-107) 02/03/17 20:53 Carbon Dioxide 23 mmol/L (22-30) 02/03/17 20:53 BUN 35 mg/dL (9-20) H 02/03/17 20:53 Creatinine 1.2 mg/dL (0.7-1.3) 02/03/17 20:53 GFR Calculation Not Reportable 02/03/17 20:53 Glucose 105 mg/dL (70-100) H 02/03/17 20:53 Calcium 8.9 mg/dL (8.4-10.2) 02/03/17 20:53 Iron 39 ug/dL (49-181) L 02/05/17 06:15 TIBC 270 ug/mL (250-400) 02/05/17 06:15 Transferrin 181 mg/dL (206-381) L 02/05/17 06:15 Transferrin % Sat 14 % (14-50) 02/05/17 06:15 Total Bilirubin 0.5 mg/dL (0.2-1.3) 02/03/17 20:53 AST 30 U/L (17-59) 02/03/17 20:53 ALT 35 U/L (21-72) 02/03/17 20:53 Alkaline Phosphatase 159 U/L (38-126) H 02/03/17 20:53 Total Protein 6.9 g/dL (6.3-8.2) 02/03/17 20:53 Albumin 3.1 g/dL (3.5-5.0) L 02/03/17 20:53 Albumin/Globulin Ratio 0.8 02/03/17 20:53 Urine Color Yellow 01/30/17 20:45 Urine Appearance Clear 01/30/17 20:45 Urine pH 7.0 (5-7) 01/30/17 20:45 Ur Specific [place] 1.020 (0.001-1.035) 01/30/17 20:45 Urine Protein 100mg/dl (2+) (NEG - TRACE) A 01/30/17 20:45 Urine Ketones Negative (NEGATIVE) 01/30/17 20:45 Urine Blood 250 jen/ul (3+) (NEGATIVE) A 01/30/17 20:45 Urine Nitrate Negative (NEGATIVE) 01/30/17 20:45 Urine Bilirubin Negative (NEGATIVE) 01/30/17 20:45 Urine Urobilinogen 0.2mg/dl (normal) (NEG-1mg/dL) 01/30/17 20:45 Ur Leukocyte Esterase Negative (NEGATIVE) 01/30/17 20:45 Urine RBC 0-5/hpf (0-5/hpf) 01/30/17 20:45 Urine WBC None seen (0-4/hpf) 01/30/17 20:45 Ur Squamous Epith Cells None seen (<= 15/hpf) 01/30/17 20:45 Urine Bacteria None seen (<10/hpf) 01/30/17 20:45 Urine Mucus None seen (Up to 25%) 01/30/17 20:45 Urine Glucose Normal (NEGATIVE) 01/30/17 20:45 Vancomycin Trough 16.2 ug/mL (5.0-20.0) 02/03/17 20:53 Assessment and Plan - Date of Encounter Date of Encounter: 02/05/17 (1) mycotic thoracoabdominial aneurysm Status: Acute Assessment and plan: S/P physician modified endograft, Dr Burdick Vancomycin and Levaquin until 02/26/17 Vanco trough, labs followed by [facility] (Call [phone]). Vanco trough goal 15-20. Watch for back/abd pain which should prompt chest/abd/pelvic CT and possible abd ultrasound Reviewed with pt and family treatment plan Possible discharge this week Current Visit: Yes (2) Atrial fibrillation Status: Chronic Assessment and plan: Amiodarone, Metoprolol Plavix, Xarelto Cardiology Current Visit: Yes (3) HTN (hypertension) Status: Chronic Assessment and plan: Hydralazine, Isosorbide, Metoprolol tartrate, Terazosin. No PETER/ARB! Poor control Increase Terazosin to 10mg QHS Current Visit: Yes (4) Hyperlipidemia Status: Chronic Assessment and plan: Atovarstatin Current Visit: Yes (5) Acute on chronic heart failure Status: Acute Assessment and plan: Cardiology Metoprolol Current Visit: Yes (6) Acute kidney injury (nontraumatic) Status: Resolved Assessment and plan: Improved Cr 1.3 No PETER/ARB! Current Visit: Yes (7) Fever of unknown origin (FUO) Status: Acute Assessment and plan: Secondary to mycotic aneurysm. No fever since surgery and antibiotics. Current Visit: Yes (8) Thrombocytopenia Status: Resolved Assessment and plan: Improved Secondary to Rocephin Current Visit: Yes (9) Hypoxia Status: Acute Assessment and plan: O2 @ 2 l/min Anoro Ellipta Inh, Albuterol HFA prn Current Visit: Yes (10) Urinary retention Status: Acute Assessment and plan: Urgent circumcision, persistent bleeding secondary to bld thinners Urinary retention with PVR, [facility] Trial of removing Eddy tomorrow AM. Check PVR. Current Visit: Yes (11) Paraphimosis Status: Acute Assessment and plan: Urgent circumcision, persistent bleeding secondary to bld thinners Urinary retention with PVR, [facility] Current Visit: Yes (12) Splenic infarct Status: Acute Assessment and plan: LUQ abd pain Secondary to multi small infarcts due to emboli Xarelto Slowly improving Current Visit: Yes (13) Visual hallucinations Status: Acute Assessment and plan: Sun-downing Did not tolerate Seroquel last night. Stopping Trazodone made no difference. EKG ok Trial of Lorazepam 0.5mg po QHS Current Visit: Yes - Time Spent With Patient Total time spent with greater than 50% in coordination of care (as documented) at patient's floor/unit and/or counseling patient: (2) Atrial fibrillation Qualifiers: Atrial fibrillation type: paroxysmal Qualified Code(s): I48.0 - Paroxysmal atrial fibrillation (3) HTN (hypertension) Qualifiers: Hypertension type: essential hypertension Qualified Code(s): I10 - Essential (primary) hypertension (4) Hyperlipidemia Qualifiers: Hyperlipidemia type: unspecified Qualified Code(s): E78.5 - Hyperlipidemia, unspecified (5) Acute on chronic heart failure Qualifiers: Heart failure type: systolic Qualified Code(s): I50.23 - Acute on chronic systolic (congestive) heart failure
[2017-02-05] MEDS ORDERED: VANCOMYCIN HCL 1,250 MG in NORMAL SALINE 250 ML IV SCH ×2 (17:00→19:00)
[2017-02-05] MEDS ORDERED: FERROUS SULFATE 325 MG TABLET PO SCH (18:00)
[2017-02-05] MEDS ORDERED: FERROUS SULFATE 325 MG TABLET PO ONE ×2 (18:23→18:30)
[2017-02-05] MEDS: LEVOFLOXACIN 250 MG TABLET PO SCH (20:39)
[2017-02-05] MEDS: ATORVASTATIN CALCIUIM 40 MG TABLET PO SCH (20:39)
[2017-02-05] MEDS: TERAZOSIN HCL 5 MG CAPSULE PO SCH (20:39)
[2017-02-05] MEDS: SENNOSIDES/DOCUSATE SODIUM 1 TAB TABLET PO SCH (20:40)
[2017-02-05] MEDS: MELATONIN 3 MG TABLET PO SCH (20:40)
[2017-02-05] MEDS: LIDOCAINE 5% 1 PATCH PATCH TOPICAL SCH (20:45)
[2017-02-05] MEDS: POLYETHYLENE GLYCOL 3350 17 GM POWD.PACK PO PRN (20:58)
[2017-02-05] MEDS ORDERED: LORazepam 0.5 MG TABLET PO SCH (21:00)
[2017-02-06] MEDS: LEVOTHYROXINE 75 MCG TABLET PO SCH (06:25)
[2017-02-06] MEDS: LEVOTHYROXINE 100 MCG TABLET PO SCH (06:25)
[2017-02-06] MEDS: PANTOPRAZOLE 40 MG TABLET PO SCH (06:25)
[2017-02-06] MEDS: ACETAMINOPHEN 325 MG TABLET PO PRN ×2 (06:45→14:24)
[2017-02-06] MEDS: UMECLIDINIUM BRM INHALATION SCH (09:03)
[2017-02-06] MEDS: VILANTEROL TR INHALATION SCH (09:03)
[2017-02-06] MEDS: hydrALAZINE HCL 10 MG TABLET PO SCH ×3 (09:05→21:48)
[2017-02-06] MEDS: BACITRACIN 1 APP/PKT PKT TOPICAL SCH ×2 (09:05→21:47)
[2017-02-06] MEDS: AMIODARONE HCL 200 MG TABLET PO SCH (09:05)
[2017-02-06] MEDS: ISOSORBIDE DINITRATE 10 MG TABLET PO SCH ×3 (09:06→21:49)
[2017-02-06] MEDS: MULTIVITAMINS THERAPEUTIC 1 TABLET PO SCH (09:07)
[2017-02-06] MEDS: CLOPIDOGREL BISULFATE 75 MG TABLET PO SCH (09:07)
[2017-02-06] MEDS: MAGNESIUM HYDROXIDE 30 ML UDC PO SCH (09:07)
[2017-02-06] MEDS: RIVAROXABAN 10 MG TABLET PO SCH (09:08)
[2017-02-06] MEDS: REMOVE PATCH 1 PATCH PATCH TRANSDERM SCH (09:14)
[2017-02-06] MEDS ORDERED: LORazepam 0.5 MG TABLET PO SCH (13:43)
[2017-02-06] MEDS ORDERED: VANCOMYCIN HCL 1,250 MG in NORMAL SALINE 250 ML IV ONE (14:00)
[2017-02-06] MEDS: FERROUS SULFATE 325 MG TABLET PO SCH (14:26)
[2017-02-06] MEDS ORDERED: VANCOMYCIN HCL 1,250 MG in NORMAL SALINE 250 ML IV SCH ×2 (16:00→17:00)
--- NOTE | 2017-02-06 17:01 | PROGRESS NOTE: IM SOAP ---
IM: PN Subjective Interval history: Visual hallucinations, anxiety and insomnia dramatically better with Lorazepam. Will try slightly higher dose tonight. General: no confusion Cardiovascular: no chest pain Respiratory: no SOB Gastrointestinal: no abdominal pain Genitourinary: no other (Eddy discontinued with pre void residual after 6 hrs of 200ml despite good fluid intake.) Musculoskeletal: no other (back pain none) IM: PN Objective Exam - I&O/Vital Signs I&O: Intake & Output 02/06/17 02/06/17 02/06/17 05:59 13:59 21:59 Intake Total 150 Output Total 1400 Balance -1250 Weight 85.275 kg Intake: Oral 150 Output: Urine 1400 Other: Urine Appearance Clear Urine Color Yellow Uretheral (Eddy) Yellow Stool Size Moderate Stool Characteristics Formed Brown Voiding Method Indwelling Catheter # Bowel Movements 1 Vital Signs: Last Vital Signs Temp 37.0 C 02/06/17 15:00 Pulse 72 02/06/17 15:00 Resp 16 02/06/17 15:00 BP 155/73 02/06/17 15:00 Pulse Ox 92 02/06/17 15:00 Oxygen Flow Rate 1 Oxygen Delivery Method Nasal Cannula - Constitutional General appearance: Absent: acute distress - Respiratory Respiratory exam: Absent: rales - Cardiovascular Cardiovascular exam: Present: RRR. Absent: systolic murmur - GI/Abdominal GI/Abdominal exam: Present: normal bowel sounds, soft, tenderness (LUQ secondary to splenic infarcts improving) - exam: Present: circumcision, scrotal swelling - Extremities Exam Extremities exam: Absent: calf tenderness, Neo's Sign, edema - Neurological Exam Neurological exam: Present: oriented X3 - Psychiatric Psychiatric exam: Absent: anxious - Lab Labs: Laboratory Last Values WBC 3.3 X 10^3uL (3.9-10.7) L 02/05/17 06:15 RBC 3.73 X 10^6uL (4.20-6.10) L 02/05/17 06:15 Hgb 10.1 g/dL (14.0-18.0) L 02/05/17 06:15 Hct 31.3 % (42.0-54.0) L 02/05/17 06:15 MCV 83.8 fL (80.0-100.0) 02/05/17 06:15 MCH 27.0 pg (29.0-35.0) L 02/05/17 06:15 MCHC 32.2 g/dL (32.0-36.0) 02/05/17 06:15 RDW 23.6 % (11.5-14.5) H 02/05/17 06:15 Plt Count 187 X 10^3uL (130-440) 02/05/17 06:15 MPV 8.9 fL (7.4-10.4) 02/05/17 06:15 Neutrophils % 57.1 % (54.0-75.0) 02/05/17 06:15 Lymphocytes % 27.5 % (20.0-40.0) 02/05/17 06:15 Eosinophils % 3.2 % (0.0-6.0) 02/05/17 06:15 Basophils % 0.1 % (0.0-2.0) 02/05/17 06:15 Neutrophils # 1.9 X 10^3uL (2.6-6.7) L 02/05/17 06:15 Lymphocytes # 0.9 X 10^3uL (0.8-3.8) 02/05/17 06:15 Monocytes 12.1 % (2.0-10.0) H 02/05/17 06:15 Monocytes # 0.4 X 10^3uL (0.2-1.0) 02/05/17 06:15 Eosinophils # 0.1 X 10^3uL (0.0-0.4) 02/05/17 06:15 Basophils # 0.0 X 10^3uL (0.0-0.1) 02/05/17 06:15 Retic Count See comments 02/05/17 06:30 PT 18.2 sec (13.0-16.6) H 01/31/17 05:00 INR 1.1 01/31/17 05:00 Sodium 134 mmol/L (137-145) L 02/03/17 20:53 Potassium 4.9 mmol/L (3.5-5.1) 02/03/17 20:53 Chloride 103 mmol/L (98-107) 02/03/17 20:53 Carbon Dioxide 23 mmol/L (22-30) 02/03/17 20:53 BUN 35 mg/dL (9-20) H 02/03/17 20:53 Creatinine 1.2 mg/dL (0.7-1.3) 02/03/17 20:53 GFR Calculation Not Reportable 02/03/17 20:53 Glucose 105 mg/dL (70-100) H 02/03/17 20:53 Calcium 8.9 mg/dL (8.4-10.2) 02/03/17 20:53 Iron 39 ug/dL (49-181) L 02/05/17 06:15 TIBC 270 ug/mL (250-400) 02/05/17 06:15 Transferrin 181 mg/dL (206-381) L 02/05/17 06:15 Transferrin % Sat 14 % (14-50) 02/05/17 06:15 Total Bilirubin 0.5 mg/dL (0.2-1.3) 02/03/17 20:53 AST 30 U/L (17-59) 02/03/17 20:53 ALT 35 U/L (21-72) 02/03/17 20:53 Alkaline Phosphatase 159 U/L (38-126) H 02/03/17 20:53 Total Protein 6.9 g/dL (6.3-8.2) 02/03/17 20:53 Albumin 3.1 g/dL (3.5-5.0) L 02/03/17 20:53 Albumin/Globulin Ratio 0.8 02/03/17 20:53 Urine Color Yellow 01/30/17 20:45 Urine Appearance Clear 01/30/17 20:45 Urine pH 7.0 (5-7) 01/30/17 20:45 Ur Specific [place] 1.020 (0.001-1.035) 01/30/17 20:45 Urine Protein 100mg/dl (2+) (NEG - TRACE) A 01/30/17 20:45 Urine Ketones Negative (NEGATIVE) 01/30/17 20:45 Urine Blood 250 jen/ul (3+) (NEGATIVE) A 01/30/17 20:45 Urine Nitrate Negative (NEGATIVE) 01/30/17 20:45 Urine Bilirubin Negative (NEGATIVE) 01/30/17 20:45 Urine Urobilinogen 0.2mg/dl (normal) (NEG-1mg/dL) 01/30/17 20:45 Ur Leukocyte Esterase Negative (NEGATIVE) 01/30/17 20:45 Urine RBC 0-5/hpf (0-5/hpf) 01/30/17 20:45 Urine WBC None seen (0-4/hpf) 01/30/17 20:45 Ur Squamous Epith Cells None seen (<= 15/hpf) 01/30/17 20:45 Urine Bacteria None seen (<10/hpf) 01/30/17 20:45 Urine Mucus None seen (Up to 25%) 01/30/17 20:45 Urine Glucose Normal (NEGATIVE) 01/30/17 20:45 Vancomycin Trough 16.2 ug/mL (5.0-20.0) 02/03/17 20:53 Assessment and Plan - Date of Encounter Date of Encounter: 02/06/17 (1) mycotic thoracoabdominial aneurysm Status: Acute Assessment and plan: S/P physician modified endograft, Dr Burdick Vancomycin and Levaquin until 02/26/17 Vanco trough, labs followed by [facility] (Call [phone]). Vanco trough goal 15-20. Watch for back/abd pain which should prompt chest/abd/pelvic CT and possible abd ultrasound Reviewed with pt and family treatment plan Possible discharge Wed. Discharge orders, prescriptions, Vanco script faxed to [facility], home O2 arranged, HHC arranged, Discussed with d/c planners, pharmacist, nursing and family. Current Visit: Yes (2) Atrial fibrillation Status: Chronic Assessment and plan: Amiodarone, Metoprolol Plavix, Xarelto Cardiology Current Visit: Yes (3) HTN (hypertension) Status: Chronic Assessment and plan: Hydralazine, Isosorbide, Metoprolol tartrate, Terazosin. No PETER/ARB! Poor control Increase Terazosin to 10mg QHS Current Visit: Yes (4) Hyperlipidemia Status: Chronic Assessment and plan: Atovarstatin Current Visit: Yes (5) Acute on chronic heart failure Status: Acute Assessment and plan: Cardiology Metoprolol Current Visit: Yes (6) Acute kidney injury (nontraumatic) Status: Resolved Assessment and plan: Improved Cr 1.3 No PETER/ARB! Current Visit: Yes (7) Fever of unknown origin (FUO) Status: Acute Assessment and plan: Secondary to mycotic aneurysm. No fever since surgery and antibiotics. Current Visit: Yes (8) Thrombocytopenia Status: Resolved Assessment and plan: Improved Secondary to Rocephin Current Visit: Yes (9) Hypoxia Status: Acute Assessment and plan: O2 @ 1 l/min Anoro Ellipta Inh, Albuterol HFA prn Current Visit: Yes (10) Urinary retention Status: Acute Assessment and plan: Urgent circumcision, persistent bleeding secondary to bld thinners Urinary retention with PVR, [facility] Trial of removing Eddy today. Pre void residual 200ml after 6 hrs but pt has not voided yet. Check PVR. Current Visit: Yes (11) Paraphimosis Status: Acute Assessment and plan: Urgent circumcision, persistent bleeding secondary to bld thinners Urinary retention with PVR, [facility] Current Visit: Yes (12) Splenic infarct Status: Acute Assessment and plan: LUQ abd pain Secondary to multi small infarcts due to emboli Xarelto Slowly improving Current Visit: Yes (13) Visual hallucinations Status: Acute Assessment and plan: Sun-downing, visual hallucinations, insomnia, anxiety Did not tolerate Seroquel last night. Stopping Trazodone made no difference. Visual hallucinations, anxiety and insomnia dramatically better with Lorazepam. Will try slightly higher dose tonight. Trial of Lorazepam 1mg po QHS Current Visit: Yes - Time Spent With Patient Total time spent with greater than 50% in coordination of care (as documented) at patient's floor/unit and/or counseling patient: (2) Atrial fibrillation Qualifiers: Atrial fibrillation type: paroxysmal Qualified Code(s): I48.0 - Paroxysmal atrial fibrillation (3) HTN (hypertension) Qualifiers: Hypertension type: essential hypertension Qualified Code(s): I10 - Essential (primary) hypertension (4) Hyperlipidemia Qualifiers: Hyperlipidemia type: unspecified Qualified Code(s): E78.5 - Hyperlipidemia, unspecified (5) Acute on chronic heart failure Qualifiers: Heart failure type: systolic Qualified Code(s): I50.23 - Acute on chronic systolic (congestive) heart failure
[2017-02-06 18:33] LABS: URINE MUCUS NONE SEEN (Up to 25%); URINE SQUAMOUS EPITHELIAL CELL NONE SEEN (<= 15/hpf)
[2017-02-06 18:41] LABS: URINE APPEARANCE SLIGHTLY CLOUDY; URINE BILIRUBIN NEGATIVE (NEGATIVE); URINE BLOOD TRACE (NEGATIVE); URINE COLOR YELLOW; URINE GLUCOSE NORMAL (NEGATIVE); URINE KETONE NEGATIVE (NEGATIVE); URINE LEUKOCYTE ESTERASE NEGATIVE (NEGATIVE); URINE NITRITE NEGATIVE (NEGATIVE); URINE PH 6.5 (5-7); URINE PROTEIN 100mg/dL (2+) (NEG - TRACE); URINE SPECIFIC GRAVITY 1.015 (0.001-1.035); URINE UROBILINOGEN 0.2mg/dL (Normal) (NEG-1mg/dL); URINE WBC 0-4/hpf (0-4/hpf)
[2017-02-06] MEDS ORDERED: LORazepam 0.5 MG TABLET PO PRN (21:20)
[2017-02-06] MEDS ORDERED: LORazepam 1 MG TABLET ONE (21:41)
[2017-02-06] MEDS: LIDOCAINE 5% 1 PATCH PATCH TOPICAL SCH (21:47)
[2017-02-06] MEDS: TERAZOSIN HCL 5 MG CAPSULE PO SCH (21:48)
[2017-02-06] MEDS: MELATONIN 3 MG TABLET PO SCH (21:48)
[2017-02-06] MEDS: ATORVASTATIN CALCIUIM 40 MG TABLET PO SCH (21:48)
[2017-02-07] MEDS ORDERED: UMECLIDINIUM BRM INHALATION SCH
[2017-02-07] MEDS ORDERED: VILANTEROL TR INHALATION SCH
[2017-02-07] MEDS: HYDROCORTISONE 1% CREAM 28 APP/28 GM TUBE TOPICAL PRN ×2 (00:57→10:06)
[2017-02-07] MEDS ORDERED: LORazepam 1 MG TABLET ONE (04:36)
[2017-02-07] MEDS: PANTOPRAZOLE 40 MG TABLET PO SCH (06:08)
[2017-02-07] MEDS: LEVOTHYROXINE 100 MCG TABLET PO SCH (06:08)
[2017-02-07] MEDS: LEVOTHYROXINE 75 MCG TABLET PO SCH (06:08)
[2017-02-07 06:55] VITALS: PULSE 74
--- NOTE | 2017-02-07 08:45 | PROGRESS NOTE: IM SOAP ---
IM: PN Subjective Interval history: Visual hallucinations, anxiety and insomnia dramatically better with Lorazepam. Still some visual hallucinations when by himself. Discharge Home General: no confusion Cardiovascular: no chest pain Respiratory: no SOB Gastrointestinal: no abdominal pain Genitourinary: no other (Eddy discontinued with pre void residual after 6 hrs of 200ml despite good fluid intake.) Musculoskeletal: no other (back pain none) IM: PN Objective Exam - I&O/Vital Signs I&O: Intake & Output 02/06/17 02/07/17 02/07/17 21:59 05:59 13:59 Intake Total 250 Output Total 500 1500 Balance -500 -1250 Intake: Oral 250 Output: Urine 500 1500 Uretheral (Eddy) 500 Other: Urine Appearance Clear Urine Color Yellow Uretheral (Eddy) Yellow Voiding Method Indwelling Catheter Vital Signs: Last Vital Signs Temp 36.4 C 02/07/17 06:54 Pulse 74 02/07/17 06:54 Resp 24 02/07/17 06:54 BP 184/90 02/07/17 06:54 Pulse Ox 92 02/07/17 06:54 Oxygen Flow Rate 0.5 Oxygen Delivery Method Nasal Cannula - Constitutional General appearance: Absent: acute distress - ENT ENT exam: Present: mucous membranes moist - Respiratory Respiratory exam: Absent: rales - Cardiovascular Cardiovascular exam: Present: RRR. Absent: systolic murmur - GI/Abdominal GI/Abdominal exam: Present: normal bowel sounds, soft, tenderness (LUQ secondary to splenic infarcts improving) - exam: Present: circumcision, scrotal swelling - Extremities Exam Extremities exam: Absent: calf tenderness, Neo's Sign, edema - Psychiatric Psychiatric exam: Absent: anxious - Lab Labs: Laboratory Last Values WBC 3.3 X 10^3uL (3.9-10.7) L 02/05/17 06:15 RBC 3.73 X 10^6uL (4.20-6.10) L 02/05/17 06:15 Hgb 10.1 g/dL (14.0-18.0) L 02/05/17 06:15 Hct 31.3 % (42.0-54.0) L 02/05/17 06:15 MCV 83.8 fL (80.0-100.0) 02/05/17 06:15 MCH 27.0 pg (29.0-35.0) L 02/05/17 06:15 MCHC 32.2 g/dL (32.0-36.0) 02/05/17 06:15 RDW 23.6 % (11.5-14.5) H 02/05/17 06:15 Plt Count 187 X 10^3uL (130-440) 02/05/17 06:15 MPV 8.9 fL (7.4-10.4) 02/05/17 06:15 Neutrophils % 57.1 % (54.0-75.0) 02/05/17 06:15 Lymphocytes % 27.5 % (20.0-40.0) 02/05/17 06:15 Eosinophils % 3.2 % (0.0-6.0) 02/05/17 06:15 Basophils % 0.1 % (0.0-2.0) 02/05/17 06:15 Neutrophils # 1.9 X 10^3uL (2.6-6.7) L 02/05/17 06:15 Lymphocytes # 0.9 X 10^3uL (0.8-3.8) 02/05/17 06:15 Monocytes 12.1 % (2.0-10.0) H 02/05/17 06:15 Monocytes # 0.4 X 10^3uL (0.2-1.0) 02/05/17 06:15 Eosinophils # 0.1 X 10^3uL (0.0-0.4) 02/05/17 06:15 Basophils # 0.0 X 10^3uL (0.0-0.1) 02/05/17 06:15 Retic Count See comments 02/05/17 06:30 PT 18.2 sec (13.0-16.6) H 01/31/17 05:00 INR 1.1 01/31/17 05:00 Sodium 134 mmol/L (137-145) L 02/03/17 20:53 Potassium 4.9 mmol/L (3.5-5.1) 02/03/17 20:53 Chloride 103 mmol/L (98-107) 02/03/17 20:53 Carbon Dioxide 23 mmol/L (22-30) 02/03/17 20:53 BUN 35 mg/dL (9-20) H 02/03/17 20:53 Creatinine 1.2 mg/dL (0.7-1.3) 02/03/17 20:53 GFR Calculation Not Reportable 02/03/17 20:53 Glucose 105 mg/dL (70-100) H 02/03/17 20:53 Calcium 8.9 mg/dL (8.4-10.2) 02/03/17 20:53 Iron 39 ug/dL (49-181) L 02/05/17 06:15 TIBC 270 ug/mL (250-400) 02/05/17 06:15 Transferrin 181 mg/dL (206-381) L 02/05/17 06:15 Transferrin % Sat 14 % (14-50) 02/05/17 06:15 Total Bilirubin 0.5 mg/dL (0.2-1.3) 02/03/17 20:53 AST 30 U/L (17-59) 02/03/17 20:53 ALT 35 U/L (21-72) 02/03/17 20:53 Alkaline Phosphatase 159 U/L (38-126) H 02/03/17 20:53 Total Protein 6.9 g/dL (6.3-8.2) 02/03/17 20:53 Albumin 3.1 g/dL (3.5-5.0) L 02/03/17 20:53 Albumin/Globulin Ratio 0.8 02/03/17 20:53 Urine Color Yellow 02/06/17 18:15 Urine Appearance Slightly cloudy 02/06/17 18:15 Urine pH 6.5 (5-7) 02/06/17 18:15 Ur Specific [place] 1.015 (0.001-1.035) 02/06/17 18:15 Urine Protein 100mg/dl (2+) (NEG - TRACE) A 02/06/17 18:15 Urine Ketones Negative (NEGATIVE) 02/06/17 18:15 Urine Blood Trace (NEGATIVE) A 02/06/17 18:15 Urine Nitrate Negative (NEGATIVE) 02/06/17 18:15 Urine Bilirubin Negative (NEGATIVE) 02/06/17 18:15 Urine Urobilinogen 0.2mg/dl (normal) (NEG-1mg/dL) 02/06/17 18:15 Ur Leukocyte Esterase Negative (NEGATIVE) 02/06/17 18:15 Urine RBC 10-25/hpf (0-5/hpf) A 02/06/17 18:15 Urine WBC 0-4/hpf (0-4/hpf) 02/06/17 18:15 Ur Squamous Epith Cells None seen (<= 15/hpf) 02/06/17 18:15 Urine Bacteria 10-20 organisms/hpf (<10/hpf) A 02/06/17 18:15 RBC Casts 0-2/lpf (None Seen) A 02/06/17 18:15 Urine Mucus None seen (Up to 25%) 02/06/17 18:15 Urine Glucose Normal (NEGATIVE) 02/06/17 18:15 Vancomycin Trough 16.2 ug/mL (5.0-20.0) 02/03/17 20:53 Assessment and Plan - Date of Encounter Date of Encounter: 02/07/17 (1) mycotic thoracoabdominial aneurysm Status: Acute Assessment and plan: S/P physician modified endograft, Dr Burdick Vancomycin and Levaquin until 02/26/17 Vanco trough, labs followed by [facility] (Call [phone]). Vanco trough goal 15-20. Watch for back/abd pain which should prompt chest/abd/pelvic CT and possible abd ultrasound Reviewed with pt and family treatment plan Discharge Wed. Discharge orders, prescriptions, Vanco script faxed to [facility], home O2 arranged, HHC arranged, Discussed with d/c planners, pharmacist, nursing and family. Current Visit: Yes (2) Atrial fibrillation Status: Chronic Assessment and plan: Amiodarone, Metoprolol Plavix, Xarelto Cardiology Current Visit: Yes (3) HTN (hypertension) Status: Chronic Assessment and plan: Hydralazine, Isosorbide, Metoprolol tartrate, Terazosin. No PETER/ARB! Poor control Hopefully BP control will improve at home but we may need to do additional adjustments on outpt basis. Current Visit: Yes (4) Hyperlipidemia Status: Chronic Assessment and plan: Atovarstatin Current Visit: Yes (5) Acute on chronic heart failure Status: Acute Assessment and plan: Cardiology Metoprolol Current Visit: Yes (6) Acute kidney injury (nontraumatic) Status: Resolved Current Visit: Yes (7) Fever of unknown origin (FUO) Status: Acute Assessment and plan: Secondary to mycotic aneurysm. No fever since surgery and antibiotics. Current Visit: Yes (8) Thrombocytopenia Status: Resolved Assessment and plan: Improved Secondary to Rocephin Current Visit: Yes (9) Hypoxia Status: Acute Current Visit: Yes (10) Urinary retention Status: Acute Assessment and plan: Urgent circumcision, persistent bleeding secondary to bld thinners Urinary retention with PVR, [facility] Yesterday PVR 527ml. Eddy replaced. Current Visit: Yes (11) Paraphimosis Status: Acute Assessment and plan: Urgent circumcision, persistent bleeding secondary to bld thinners Urinary retention with PVR, [facility] Current Visit: Yes (12) Splenic infarct Status: Acute Assessment and plan: LUQ abd pain Secondary to multi small infarcts due to emboli Xarelto Slowly improving Current Visit: Yes (13) Visual hallucinations Status: Acute Assessment and plan: Sun-downing, visual hallucinations, insomnia, anxiety Did not tolerate Seroquel last night. Stopping Trazodone made no difference. Visual hallucinations, anxiety and insomnia dramatically better with Lorazepam. However still having some visual hallucinations when by himself. Lorazepam 1mg po QHS Current Visit: Yes - Time Spent With Patient Total time spent with greater than 50% in coordination of care (as documented) at patient's floor/unit and/or counseling patient: (2) Atrial fibrillation Qualifiers: Atrial fibrillation type: paroxysmal Qualified Code(s): I48.0 - Paroxysmal atrial fibrillation (3) HTN (hypertension) Qualifiers: Hypertension type: essential hypertension Qualified Code(s): I10 - Essential (primary) hypertension (4) Hyperlipidemia Qualifiers: Hyperlipidemia type: unspecified Qualified Code(s): E78.5 - Hyperlipidemia, unspecified (5) Acute on chronic heart failure Qualifiers: Heart failure type: systolic Qualified Code(s): I50.23 - Acute on chronic systolic (congestive) heart failure
[2017-02-07] MEDS: hydrALAZINE HCL 10 MG TABLET PO SCH ×2 (09:34→15:08)
[2017-02-07] MEDS: VILANTEROL TR INHALATION SCH (09:34)
[2017-02-07] MEDS: UMECLIDINIUM BRM INHALATION SCH (09:34)
[2017-02-07] MEDS: BACITRACIN 1 APP/PKT PKT TOPICAL SCH (09:35)
[2017-02-07] MEDS: AMIODARONE HCL 200 MG TABLET PO SCH (09:35)
[2017-02-07] MEDS: FERROUS SULFATE 325 MG TABLET PO SCH (09:36)
[2017-02-07] MEDS: ISOSORBIDE DINITRATE 10 MG TABLET PO SCH ×2 (09:36→15:09)
[2017-02-07] MEDS: MULTIVITAMINS THERAPEUTIC 1 TABLET PO SCH (09:38)
[2017-02-07] MEDS: MAGNESIUM HYDROXIDE 30 ML UDC PO SCH (09:38)
[2017-02-07] MEDS: CLOPIDOGREL BISULFATE 75 MG TABLET PO SCH (09:38)
[2017-02-07] MEDS: RIVAROXABAN 10 MG TABLET PO SCH (09:39)
[2017-02-07] MEDS: REMOVE PATCH 1 PATCH PATCH TRANSDERM SCH (10:04)
[2017-02-07 11:36] VITALS: BP 141/81; RESP 28; TEMP 98.3; O2SAT 95
[2017-02-07 11:41] LABS: BASOPHILS 4.1 % (0.0-2.0); HEMATOCRIT 31.6 % (42.0-54.0); HEMOGLOBIN 10.5 g/dL (14.0-18.0); LYMPHOCYTES 45.3 % (20.0-40.0); LYMPHOCYTES# 1.2 X 10^3uL (0.8-3.8); MEAN CORPUS. HGB CONCENTRATION 33.1 g/dL (32.0-36.0); MEAN CORPUSCULAR HEMOGLOBIN 28.1 pg (29.0-35.0); MEAN PLATELET VOLUME 8.6 fL (7.4-10.4); MONOCYTES 35.8 % (2.0-10.0); MONOCYTES# 0.5 X 10^3uL (0.2-1.0); NEUTROPHILS 3.2 % (54.0-75.0); NEUTROPHILS# 1.5 X 10^3uL (2.6-6.7); PLATELET COUNT 197 X 10^3uL (130-440); RED BLOOD COUNT 3.72 X 10^6uL (4.20-6.10); RED CELL DISTRIBUTION WIDTH 22.3 % (11.5-14.5); WHITE BLOOD COUNT 3.2 X 10^3uL (3.9-10.7)
[2017-02-07 11:42] LABS: EOSINOPHILS# 0.1 X 10^3uL (0.0-0.4)
[2017-02-07 11:46] LABS: A/G RATIO 0.9; ALBUMIN 3.4 g/dL (3.5-5.0); ALKALINE PHOSPHATASE 174 U/L (38-126); ALT 30 U/L (21-72); AST 34 U/L (17-59); BILIRUBIN, TOTAL 0.6 mg/dL (0.2-1.3); BLOOD UREA NITROGEN 25 mg/dL (9-20); CHLORIDE 108 mmol/L (98-107); GLUCOSE 103 mg/dL (70-100); POTASSIUM 4.4 mmol/L (3.5-5.1); SODIUM 138 mmol/L (137-145); TOTAL PROTEIN 7.4 g/dL (6.3-8.2)
[2017-02-07] MEDS ORDERED: NORMAL SALINE IV SCH (12:55)
[2017-02-07] MEDS ORDERED: VANCOMYCIN HCL IV SCH (12:55)
[2017-02-07] MEDS ORDERED: VANCOMYCIN HCL 1,250 MG in NORMAL SALINE 250 ML IV SCH (15:00)
[2017-02-08] MEDS ORDERED: VANCOMYCIN HCL 1,250 MG in NORMAL SALINE 250 ML IV SCH (12:00)
--- NOTE | 2017-02-09 11:12 | DISCHARGE SUMMARY ---
DATE OF ADMISSION: 01/30/17 DATE OF DISCHARGE: 02/07/17 ATTENDING PHYSICIAN: Mark Joe MD DIAGNOSES 1. 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 2. Acute kidney injury, resolved. 3. Hypertension. 4. Hyperlipidemia. 5. Atrial fibrillation. 6. Fever of unknown origin, felt to be related to #1, resolved. 7. Acute thrombocytopenia, related Rocephin, resolved. 8. Paraphimosis with urinary retention, status post urgent circumcision with persistent urinary retention. 9. Acute on chronic systolic heart failure. 10. Hypoxic. 11. Splenic infarct, felt to be related to multiple emboli. 12. Obstructive sleep apnea. 13. Generalized weakness secondary to prolonged hospitalization. 14. Retrospectively, symptoms of chronic fever, fatigue, weight loss, night sweats, elevated CRP, depression, etc., for the last year and most likely related to #1. All symptoms are doing better at this time. 15. Visual hallucinations/sun downing, improved with medications. HISTORY OF PRESENT ILLNESS: Patient is an 81-year-old male who was admitted to [facility] on 01/04/17 and transferred to [facility] on for congestive heart failure, acute respiratory failure due to hypoxia and an 8 cm descending thoracic aortic aneurysm. Patient was not a good surgical candidate. He had been having fevers of unknown origin for the last year, and had an extensive workup with Infectious Disease, Hematology and Rheumatology. At the time of transfer, there was concern for a mycotic thoracoabdominal aortic aneurysm. This aneurysm had rapidly dilated over the last year to 8 cm. The patient was under the care of vascular surgeon Dr. Alex Burdick, who performed placement of a physician-modified Endograft for repair of the patient' s mycotic thoracoabdominal aortic aneurysm. Postoperatively the patient did have issues with acute respiratory distress and flash pulmonary edema with a rise in his troponin I. He was diuresed and followed by Cardiology, Pulmonology and Nephrology. He will remain on Plavix for a lifetime to ensure patency of the mesenteric and renal stents. He did demonstrate a splenic infarct felt to be due to multiple emboli, with associated left upper quadrant abdominal pain. The pain was controlled with Tylenol and Tramadol. He did develop an acute kidney injury, multifactorial, including IV contrast, vin inhibitors, hypertension and NSAID usage. Creatinine peaked at 2.2 from a baseline of 1.1, and fortunately it improved with time. At this time hypertension is stable on a combination of Metoprolol, isosorbide, Hydralazine and Doxazosin; he was to avoid Vin inhibitors and ARB and hypertensives. Hyperlipidemia remains stable on statin therapy. Atrial fibrillation was rate controlled with Amiodarone and Metoprolol; patient remains on Plavix and Xarelto. Fever of unknown origin was extensively evaluated by Infectious Disease and Rheumatology. At this time, the myotic thoracoabdominal aortic aneurysm seems to be the most likely source, and he has had no further fevers since his graft placement and treatment with antibiotics. He will need to remain on IV Vancomycin and Levaquin until 02/26/17, and will have weekly CBC with differential, CMP and Vancomycin trough while on antibiotics. The [facility] ([facility]) along with [facility] physician will be following these test results. He did develop acute thrombocytopenia, felt to be related to Rocephin and this was added to his allergy list. He did require urgent circumcision for a paraphimosis with associated urinary retention. A trial of fully discontinuation failed due to a post void residual of 800 mL and the Eddy was reinserted on 01/29/17. He will need to be followed by Urology in this regard. He had underlying acute on chronic systolic heart failure, and Cardiology has been consulted to help manage. Patient did require diuresis, and he has an injection fraction of less than 40%. He is on multiple medications for congestive heart failure as noted above. He remains hypoxic and is requiring oxygen at 1 liter per minute in [place] and 2 liters per minute in [place] at 7500 foot elevation. He will have a follow up with Dr. Burdick in about 1 month. Please see previously dictated history and physical for further details. SWING BED COURSE: Patient required swing bed admission for generalized weakness secondary to prolonged hospitalization. He received extensive physical therapy, occupational therapy and rehabilitation. By the time he was discharged, his overall strength had dramatically improved and his ability to ambulate safely had dramatically improved. He is currently ambulating with a walker. For the myotic thoracoabdominal aortic aneurysm, status post physician-modified Endograft, the patient continued to receive IV Vancomycin and p.o. Levaquin. The dosage of Vancomycin was slightly modified to keep a Vancomycin trough level of 15-20. Discharge Vancomycin trough was 19.1, and will be rechecked on Sunday. Discharge WBC level was 3.2 with hemoglobin and hematocrit 10.5/31.6. Patient had no further fevers or signs of infection. Previous symptoms of chronic fever, fatigue, weight loss, night sweats, elevated CRP, depression have all resolved and felt to be related to the mycotic aneurysm. Previous acute kidney issue resolved with discharge creatinine 1.2, which is baseline. Hypertension was only under fair control with blood pressure readings fluctuating between 141-184/81-90. Dosage of Doxazosin was increased. Much of his elevated blood pressure appeared to be related to his anxiety and visual hallucinations, and hopefully once he returns home his blood pressure will improve as well. If not, Cardiology will be involved to help bring hypertension under better control. Current blood pressure medications include Hydralazine, Isosorbide, Metoprolol tartrate and Terazosin (Vin inhibitors and angiotensin receptor balbir are to be avoided). Hyperlipidemia was controlled with Atorvastatin. Atrial fibrillation remained rate controlled with Amiodarone and Metoprolol tartrate, and patient remains on Plavix and Xarelto. Acute on chronic congestive heart failure remains stable with no rales or edema and will be followed by Cardiology; main treatment is Metoprolol with currently no diuretics. Thrombocytopenia has fully resolved at this time with discharge platelet count 197,000; thrombocytopenia was felt to be due to Rocephin and resolved with discontinuation of Rocephin. Patient remains hypoxic; with a room air pulse ox of 84%. He will remain on oxygen at 1 liter per minute at rest and 3 minutes per minute with exertion. He had extensive respiratory modalities with the respiratory therapist. He will be seeing Pulmonology in the future. Patient is post circumcision for a paraphimosis; he had some slow bloody leakage but this eventually stopped. We did do a trial of Eddy removal on 02/06/17, but he had greater than 5 mL post void residual and Eddy catheter was placed once again. Also he had splenic infarcts felt to be due to emboli, for which he is on the Xarelto. The left upper quadrant pain slowly improved during his stay but had not fully resolved during his stay. Also he was having significant issues with sun downing, visual hallucinations, resulting in insomnia and anxiety. Trazadone did not seem to be effective and Seroquel was not tolerated. He was started on Lorazepam 0.5 mg which seemed to help and the dosage was then increased to 1 mg p.o. q.h.s., also with improvement in symptoms. However, he continues to have some visual hallucinations and sun downing and it is hoped that on his return home, this will continue to improve. This will need to be monitored on an outpatient basis. Patient remains full code at this time. At this time patient is felt to be sufficiently stable that he can return home and will be followed closely on an outpatient basis. He remains at high risk for rehospitalization for same or related reasons. Patient did have some issues with iron-deficiency anemia, for which he was placed on Ferrous sulfate 325 mg p.o. daily for the next 3 months. DISCHARGE INSTRUCTIONS: Patient is to ambulate with a walker 3 times a day and be up in a chair 3 times a day. He remains on cardiac, low-salt, low- cholesterol diet. He has a Eddy catheter in place to gravity. He will have a follow up appointment with Dr. Joe on 02/12/17 and a follow up appointment with [facility] [employer] on 02/14/17. He has a follow up appointment with [employer] Department Supervisor Dr. Garcia on 02/09/17. He has a follow up appointment with Urologist Dr. Leon on 02/12/17. He has a follow up appointment with Dr. Alex Burdick on 03/08/17. He is currently on oxygen at 1 liter per minute and on oxygen at 3 liters per minute by nasal prongs with exercise. He will be followed by Home Health Care, Nursing and Physical Therapy. His next Vancomycin trough, CBC and CMP is on Sunday, with results to be sent to the [facility] ([facility]) along with [facility] physicians to assist in management of the Vancomycin. DISCHARGE MEDICATIONS Acetaminophen 650 mg p.o. q.6 hours PRN. Proventil HFA inhaler 1-2 puffs q.4 hours PRN. Amiodarone 200 mg p.o. daily #30, 5 refill. Atorvastatin 40 mg p.o. daily #30, 5 refill. Bacitracin to be applied topically to the circumcision site until healed. Plavix 75 mg p.o. daily #90, 1 year refill. Docusate 50 mg p.o. q.h.s. Ferous sulfate 325 mg p.o. daily x3 months #90, no refill. Fluticasone nasal inhaler 2 sprays each nostril daily PRN, #1, 1 year refill. Hydralazine 10 mg p.o. t.i.d. #90, 5 refill. Isosorbide dinitrate 10 mg p.o. t.i.d. #90, 5 refill. Levaquin 500 mg p.o. q.48 hours #10. Levothyroxine 175 mcg p.o. daily #90, 1 year refill. Lidocaine 5% patch to be applied q.a.m. and to be removed 12 hours later #30, 5 refill (over the counter okay). Lorazepam 1 mg p.o. q.h.s. #30, 5 refill. Milk of Magnesium 30 mL p.o. daily. Melatonin 6 mg p.o. q.h.s. Metoprolol tartrate 25 mg p.o. b.i.d. #60, 5 refill. Multivitamin 1 tab p.o. daily. Pantoprazole 40 mg p.o. daily #30, 5 refill. MiraLax 17 grams p.o. b.i.d. PRN. Xarelto 15 mg p.o. daily #90, 1 year refill. Terazosin 10 mg p.o. q.h.s. #30, 5 refill. Tramadol 50 mg p.o. q.i.d. #100, 5 refill. Anoro Ellipta inhaler 62.5/25 mcg 1 puff daily #1, 5 refill. Vancomycin 1250 mg IV daily with next Vancomycin trough Sunday script is faxed to [facility] (fax [phone], attention Eve). Copies to: Dr. Alex Burdick, Dr. Ren, Dr. Magdaleno, Dr. Hernandes, Dr. Iyer, Dr. Benitez, Dr. Leon, [facility]fe[facility]
== END 2017-02-07 08:00 | disposition home or self-care (01) | DRG 299 ==
LOC: IN 18:16
PROVIDERS: ADMIT Family Medicine; ATTEND Family Medicine
DX: I71.6 Thoracoabdominal aortic aneurysm, without rupture (principal); I50.23 Acute on chronic systolic (congestive) heart failure; I12.9 Hypertensive chronic kidney disease with stage 1 through stage 4 chronic kidney disease, or unspecified chronic kidney disease; R44.1 Visual hallucinations; E78.5 Hyperlipidemia, unspecified; I48.2 Chronic atrial fibrillation; I25.10 Atherosclerotic heart disease of native coronary artery without angina pectoris; E03.9 Hypothyroidism, unspecified; G47.33 Obstructive sleep apnea (adult) (pediatric); M48.06 Spinal stenosis, lumbar region; K21.9 Gastro-esophageal reflux disease without esophagitis; N47.2 Paraphimosis; Z85.828 Personal history of other malignant neoplasm of skin; R79.89 Other specified abnormal findings of blood chemistry; R53.1 Weakness; G47.00 Insomnia, unspecified; F41.1 Generalized anxiety disorder; R09.02 Hypoxemia; R33.8 Other retention of urine; R50.9 Fever, unspecified; D69.6 Thrombocytopenia, unspecified; Z79.02 Long term (current) use of antithrombotics/antiplatelets; Z79.899 Other long term (current) drug therapy
CPT/HCPCS: 51702; 71020; 80053; 80202; 81001; 83540; 84466; 85025; 85045; 85610; 87086; 93005; 94664; 94761; E0555; J1642; J3370; J7050